=== PATIENT | female | born 1945 | race Caucasian/White ===

== ENCOUNTER → 2017-06-03 | Outpatient (CLI) | payer MEDICARE ==
[~2017-06-03] VITALS: Ht 162.6 cm; Wt 67.1 kg
[2017-06-03 12:15] LABS: Basophils # (auto) 0.1 uL; Eosinophils # (auto) 0.5 uL; Eosinophils % (auto) 8.1 % (0.0-7.0); Hematocrit 46.4 % (36.0-46.0); Hemoglobin 15.6 g/dL (12.2-16.2); Lymphocytes # (auto) 1.8 uL; Lymphocytes % (auto) 30.2 % (10.0-50.0); Mean Corpuscular Hemoglobin 33.8 pg (28.0-32.0); Mean Corpuscular Hgb Conc. 33.7 g/dL (32.0-36.0); Mean Corpuscular Volume 100.2 fL (80.0-100.0); Monocytes # (auto) 0.6 uL; Monocytes % (auto) 10.2 % (0.0-12.0); Neutrophils # (auto) 2.9 uL; Neutrophils % (auto) 49.5 % (37.0-80.0); Nucleated Red Blood Cells % 0.1 %; Platelet Count (auto) 290 10^3/uL (140-450); Red Blood Cells 4.63 10^6/uL (4.0-5.20); Red Cell Distribution Width 13.7 % (11.8-14.3); White Blood Cell 5.8 10^3/uL (4.4-10.8)
[2017-06-03 12:16] LABS: Urine Blood TRACE /uL (Negative); Urine Specific Gravity 1.019 (1.001-1.035)
[2017-06-03 12:28] LABS: Free T4 (Free Thyroxine) 1.09 ng/dL (0.89-1.76)
[2017-06-03 12:44] LABS: Albumin 3.8 g/dL (3.4-5.0); Bilirubin, Total 0.5 mg/dL (0.2-1.0); Calcium 9.9 mg/dL (8.5-10.1); Potassium 4.7 mmol/L (3.5-5.1); Total Protein 7.2 g/dL (6.4-8.2)
== END | disposition home or self-care (01) ==
LOC: Rad HDHVI 08:04
PROVIDERS: ATTEND Internal Medicine Cardiovascular Disease
DX: I20.9 Angina pectoris, unspecified (principal); R91.8 Other nonspecific abnormal finding of lung field; J44.9 Chronic obstructive pulmonary disease, unspecified; E04.1 Nontoxic single thyroid nodule; I70.0 Atherosclerosis of aorta; E04.9 Nontoxic goiter, unspecified; E78.00 Pure hypercholesterolemia, unspecified; D64.9 Anemia, unspecified; I10 Essential (primary) hypertension; E11.9 Type 2 diabetes mellitus without complications; E03.9 Hypothyroidism, unspecified; E55.9 Vitamin D deficiency, unspecified; D51.9 Vitamin B12 deficiency anemia, unspecified; N39.0 Urinary tract infection, site not specified
CPT/HCPCS: 36415; 78452; 80053; 80061; 81003; 82306; 82607; 83036; 84439; 84443; 85025; 93017; 96374; A9500; 71046

== ENCOUNTER → 2018-04-25 | Outpatient (CLI) | payer MEDICARE ==
[~2018-04-25] MED LIST: IOHEXOL 350 MG/ML 100ML IJ ONE
[2018-04-25 12:05] VITALS: BP 130/50
[2018-04-25 12:30] VITALS: BP 119/52
== END | disposition home or self-care (01) ==
LOC: Rad HDHVI 11:59
PROVIDERS: ATTEND Internal Medicine Cardiovascular Disease
DX: T17.890A Other foreign object in other parts of respiratory tract causing asphyxiation, initial encounter (principal); R06.02 Shortness of breath; R05 Cough; I70.0 Atherosclerosis of aorta; X58.XXXA Exposure to other specified factors, initial encounter; Y93.89 Activity, other specified; Y92.89 Other specified places as the place of occurrence of the external cause; Y99.8 Other external cause status
CPT/HCPCS: 71275; 82565; G0463; Q9967

== ENCOUNTER → 2018-07-26 | Outpatient (CLI) | payer MEDICARE ==
[2018-07-26 12:15] LABS: Basophils # (auto) 0.1 uL; Basophils % (auto) 2.2 % (0.0-2.0); Eosinophils # (auto) 0.4 uL; Hematocrit 49.9 % (36.0-46.0); Hemoglobin 16.6 g/dL (12.2-16.2); Lymphocytes # (auto) 1.7 uL; Lymphocytes % (auto) 27.6 % (10.0-50.0); Mean Corpuscular Hemoglobin 33.3 pg (28.0-32.0); Mean Corpuscular Hgb Conc. 33.2 g/dL (32.0-36.0); Mean Corpuscular Volume 100.5 fL (80.0-100.0); Monocytes # (auto) 0.6 uL; Monocytes % (auto) 9.1 % (0.0-12.0); Neutrophils # (auto) 3.3 uL; Neutrophils % (auto) 54.1 % (37.0-80.0); Nucleated Red Blood Cells % 0.8 %; Platelet Count (auto) 301 10^3/uL (140-450); Red Blood Cells 4.97 10^6/uL (4.0-5.20); Red Cell Distribution Width 13.4 % (11.8-14.3)
[2018-07-26 12:23] LABS: Urine Blood Negative /uL (Negative); Urine Specific Gravity 1.014 (1.001-1.035)
[2018-07-26 12:30] LABS: Potassium 3.7 mmol/L (3.5-5.1)
[2018-07-26 12:55] LABS: Albumin 3.6 g/dL (3.4-5.0); Bilirubin, Total 0.4 mg/dL (0.2-1.0); Calcium 10.1 mg/dL (8.5-10.1); Total Protein 7.5 g/dL (6.4-8.2)
[2018-07-26 19:30] LABS: Free T4 (Free Thyroxine) 1.38 ng/dL (0.89-1.76)
== END | disposition home or self-care (01) ==
LOC: LAB 08:08
PROVIDERS: ATTEND Internal Medicine Cardiovascular Disease
DX: E55.9 Vitamin D deficiency, unspecified (principal); E03.9 Hypothyroidism, unspecified; E11.9 Type 2 diabetes mellitus without complications; D51.9 Vitamin B12 deficiency anemia, unspecified; N39.0 Urinary tract infection, site not specified
CPT/HCPCS: 36415; 80053; 80061; 81003; 82306; 82607; 83036; 84439; 84443; 85025; 87086

== ENCOUNTER → 2019-04-27 | Outpatient (CLI) | payer MEDICARE ==
[~2019-04-27] VITALS: Ht 162.6 cm; Wt 65.8 kg
[~2019-04-27] MED LIST changes: +ADENOSINE 55 MG in GIVE UN-DILUTED 0 ML IV ONE; +ADENOSINE 90 MG/30 ML INJ IV ONE; -IOHEXOL 350 MG/ML 100ML IJ ONE
== END | disposition home or self-care (01) ==
LOC: Rad HDHVI 13:33
PROVIDERS: ATTEND Internal Medicine Cardiovascular Disease
DX: R07.89 Other chest pain (principal); R00.2 Palpitations; R06.02 Shortness of breath; I25.2 Old myocardial infarction; I10 Essential (primary) hypertension; E78.00 Pure hypercholesterolemia, unspecified; R07.9 Chest pain, unspecified
CPT/HCPCS: 78452; 93005; 96374; 96375; A9500; J0153

== ENCOUNTER → 2020-04-01 | Outpatient (CLI) | payer MEDICARE | END | disposition home or self-care (01) | LOC: Rad HDHVI 11:43 | PROVIDERS: ATTEND Internal Medicine Cardiovascular Disease | DX: I70.90 Unspecified atherosclerosis (principal); R27.0 Ataxia, unspecified | CPT/HCPCS: 70450 ==

== ENCOUNTER → 2020-04-10 | Outpatient (CLI) | payer MEDICARE | END | disposition home or self-care (01) | LOC: Rad HDHVI 14:02 | PROVIDERS: ATTEND Internal Medicine Cardiovascular Disease | DX: J44.9 Chronic obstructive pulmonary disease, unspecified (principal); R06.02 Shortness of breath | CPT/HCPCS: 93306 ==

== ENCOUNTER → 2020-04-23 | Outpatient (CLI) | payer MEDICARE ==
[2020-04-23 12:17] LABS: Urine Blood Negative /uL (Negative); Urine Specific Gravity 1.008 (1.001-1.035)
[2020-04-23 12:30] LABS: Albumin 3.6 g/dL (3.4-5.0); Potassium 4.1 mmol/L (3.5-5.1)
[2020-04-23 12:36] LABS: Bilirubin, Total 0.4 mg/dL (0.2-1.0); Total Protein 7.3 g/dL (6.4-8.2)
[2020-04-23 12:45] LABS: Basophils # (auto) 0.1 10 ^3/uL (0-0.2); Basophils % (auto) 1.8 % (0.0-2.0); Eosinophils # (auto) 0.5 10 ^3/uL (0-0.8); Eosinophils % (auto) 7.6 % (0.0-7.0); Hematocrit 44.5 % (36.0-46.0); Hemoglobin 14.7 g/dL (12.2-16.2); Lymphocytes # (auto) 1.4 10 ^3/uL (0.4-5.4); Lymphocytes % (auto) 20.6 % (10.0-50.0); Mean Corpuscular Hemoglobin 32.8 pg (28.0-32.0); Mean Corpuscular Volume 99.2 fL (80.0-100.0); Monocytes # (auto) 0.6 10 ^3/uL (0-1.3); Monocytes % (auto) 8.4 % (0.0-12.0); Neutrophils # (auto) 4.1 10 ^3/uL (1.6-8.6); Neutrophils % (auto) 61.6 % (37.0-80.0); Platelet Count (auto) 352 10^3/uL (140-450); Red Blood Cells 4.48 10^6/uL (4.0-5.20); Red Cell Distribution Width 13.1 % (11.8-14.3); White Blood Cell 6.7 10^3/uL (4.4-10.8)
[2020-04-23 14:50] LABS: Free T4 (Free Thyroxine) 1.19 ng/dL (0.89-1.76)
== END | disposition home or self-care (01) ==
LOC: LAB 08:53
PROVIDERS: ATTEND Internal Medicine Cardiovascular Disease
DX: D51.3 Other dietary vitamin B12 deficiency anemia (principal); I10 Essential (primary) hypertension; E11.9 Type 2 diabetes mellitus without complications; E55.9 Vitamin D deficiency, unspecified; D64.9 Anemia, unspecified; R00.2 Palpitations; R53.1 Weakness; R30.0 Dysuria
CPT/HCPCS: 36415; 80053; 80061; 81003; 82306; 82607; 83036; 84403; 84439; 84443; 85025

== ENCOUNTER → 2021-04-29 | Outpatient (CLI) | payer MEDICARE | END | disposition home or self-care (01) | LOC: LAB 11:55 | PROVIDERS: ATTEND Internal Medicine Gastroenterology | DX: R19.7 Diarrhea, unspecified (principal) | CPT/HCPCS: 82784; 83516; 86255 ==

== ENCOUNTER → 2021-05-26 | Outpatient (CLI) | payer MEDICARE | END | disposition home or self-care (01) | LOC: LAB 14:06 | PROVIDERS: ATTEND Internal Medicine Gastroenterology | DX: R19.7 Diarrhea, unspecified (principal) | CPT/HCPCS: 87045; 87427; 87493 ==

== ENCOUNTER 2021-07-16 09:00 | Outpatient (CLI) | payer MEDICARE ==
[~2021-07-16] VITALS: Ht 162.6 cm; Wt 63.5 kg
[~2021-07-16 09:00] MED LIST changes: -ADENOSINE 55 MG in GIVE UN-DILUTED 0 ML IV ONE; -ADENOSINE 90 MG/30 ML INJ IV ONE; +CLOP75TA28 PO
[2021-07-16 09:46] LABS: INR 0.98 (0.9-1.15); Partial Thromboplastin Time 27.3 sec (23.6-33.0)
[2021-07-16 12:36] LABS: Basophils # (auto) 0.1 10 ^3/uL (0-0.2); Basophils % (auto) 1.2 % (0.0-2.0); Eosinophils # (auto) 0.2 10 ^3/uL (0-0.8); Eosinophils % (auto) 3.8 % (0.0-7.0); Hematocrit 46.3 % (36.0-46.0); Hemoglobin 15.6 g/dL (12.2-16.2); Lymphocytes # (auto) 1.5 10 ^3/uL (0.4-5.4); Lymphocytes % (auto) 24.7 % (10.0-50.0); Mean Corpuscular Hgb Conc. 33.6 g/dL (32.0-36.0); Mean Corpuscular Volume 98.1 fL (80.0-100.0); Monocytes # (auto) 0.6 10 ^3/uL (0-1.3); Monocytes % (auto) 9.4 % (0.0-12.0); Neutrophils # (auto) 3.6 10 ^3/uL (1.6-8.6); Neutrophils % (auto) 60.9 % (37.0-80.0); Nucleated Red Blood Cells % 0.1 %; Red Blood Cells 4.72 10^6/uL (4.0-5.20); Red Cell Distribution Width 13.1 % (11.8-14.3); White Blood Cell 5.9 10^3/uL (4.4-10.8)
[2021-07-16 12:50] LABS: Potassium 4.1 mmol/L (3.5-5.1)
[2021-07-16 13:02] LABS: Albumin 3.8 g/dL (3.4-5.0); BUN/Creatinine Ratio 24.3; Bilirubin, Total 0.5 mg/dL (0.2-1.0); Calcium 10.3 mg/dL (8.5-10.1); Total Protein 7.4 g/dL (6.4-8.2)
== END 2021-07-16 09:14 | disposition home or self-care (01) ==
LOC: LAB 09:00 → EDSTATUS 07-17 09:15
PROVIDERS: ATTEND Internal Medicine Gastroenterology
DX: Z01.812 Encounter for preprocedural laboratory examination (principal); I21.9 Acute myocardial infarction, unspecified; J44.9 Chronic obstructive pulmonary disease, unspecified; K63.5 Polyp of colon; Z20.822 Contact with and (suspected) exposure to COVID-19; I10 Essential (primary) hypertension; I71.4 Abdominal aortic aneurysm, without rupture; R19.7 Diarrhea, unspecified; F17.200 Nicotine dependence, unspecified, uncomplicated
CPT/HCPCS: 36415; 80053; 85025; 85610; 85730; U0003

== ENCOUNTER → 2021-08-08 | Outpatient (CLI) | payer MEDICARE ==
[2021-08-08 11:52] LABS: Urine Blood Negative /uL (Negative); Urine Specific Gravity 1.021 (1.001-1.035)
[2021-08-08 12:03] LABS: Potassium 3.8 mmol/L (3.5-5.1)
[2021-08-08 12:07] LABS: Basophils # (auto) 0.1 10 ^3/uL (0-0.2); Basophils % (auto) 1.3 % (0.0-2.0); Eosinophils # (auto) 0.4 10 ^3/uL (0-0.8); Eosinophils % (auto) 6.4 % (0.0-7.0); Hematocrit 46.4 % (36.0-46.0); Hemoglobin 15.8 g/dL (12.2-16.2); Lymphocytes # (auto) 1.5 10 ^3/uL (0.4-5.4); Lymphocytes % (auto) 23.7 % (10.0-50.0); Mean Corpuscular Hemoglobin 33.2 pg (28.0-32.0); Mean Corpuscular Hgb Conc. 34.1 g/dL (32.0-36.0); Mean Corpuscular Volume 97.4 fL (80.0-100.0); Monocytes # (auto) 0.5 10 ^3/uL (0-1.3); Monocytes % (auto) 8.1 % (0.0-12.0); Neutrophils % (auto) 60.5 % (37.0-80.0); Red Blood Cells 4.76 10^6/uL (4.0-5.20); Red Cell Distribution Width 13.4 % (11.8-14.3); White Blood Cell 6.5 10^3/uL (4.4-10.8)
[2021-08-08 12:12] LABS: Albumin 3.7 g/dL (3.4-5.0); BUN/Creatinine Ratio 23.5; Bilirubin, Total 0.5 mg/dL (0.2-1.0); Calcium 10.8 mg/dL (8.5-10.1); Total Protein 7.6 g/dL (6.4-8.2)
[2021-08-08 12:14] LABS: Free T4 (Free Thyroxine) 1.23 ng/dL (0.89-1.76)
== END | disposition home or self-care (01) ==
LOC: LAB 08:24
PROVIDERS: ATTEND Internal Medicine Cardiovascular Disease
DX: E11.9 Type 2 diabetes mellitus without complications (principal); D51.3 Other dietary vitamin B12 deficiency anemia; D64.9 Anemia, unspecified; E55.9 Vitamin D deficiency, unspecified; I10 Essential (primary) hypertension; R00.2 Palpitations; R53.1 Weakness; R30.0 Dysuria
CPT/HCPCS: 36415; 80053; 80061; 81003; 82306; 82607; 83036; 84439; 84443; 85025

== ENCOUNTER → 2021-08-21 | Day surgery (SDC) | payer MEDICARE ==
[2021-08-19 10:35] LABS: Urine Bacteria FEW /hpf (None Seen); Urine Blood Negative /uL (Negative); Urine Specific Gravity 1.021 (1.001-1.035); Urine WBC 2 /hpf (0 - 5)
[2021-08-19 10:36] LABS: Basophils # (auto) 0.1 10 ^3/uL (0-0.2); Basophils % (auto) 1.4 % (0.0-2.0); Eosinophils # (auto) 0.2 10 ^3/uL (0-0.8); Eosinophils % (auto) 2.9 % (0.0-7.0); Hematocrit 44.2 % (36.0-46.0); Hemoglobin 15.1 g/dL (12.2-16.2); Lymphocytes # (auto) 1.5 10 ^3/uL (0.4-5.4); Lymphocytes % (auto) 20.3 % (10.0-50.0); Mean Corpuscular Hemoglobin 33.1 pg (28.0-32.0); Mean Corpuscular Hgb Conc. 34.1 g/dL (32.0-36.0); Mean Corpuscular Volume 97.2 fL (80.0-100.0); Monocytes # (auto) 0.6 10 ^3/uL (0-1.3); Monocytes % (auto) 7.7 % (0.0-12.0); Neutrophils # (auto) 5.1 10 ^3/uL (1.6-8.6); Neutrophils % (auto) 67.7 % (37.0-80.0); Nucleated Red Blood Cells % 0.1 %; Red Blood Cells 4.55 10^6/uL (4.0-5.20); Red Cell Distribution Width 13.2 % (11.8-14.3); White Blood Cell 7.5 10^3/uL (4.4-10.8)
[2021-08-19 10:37] LABS: Potassium 4.8 mmol/L (3.5-5.1)
[2021-08-19 10:47] LABS: Albumin 3.5 g/dL (3.4-5.0); BUN/Creatinine Ratio 16.5; Bilirubin, Total 0.4 mg/dL (0.2-1.0); Calcium 9.5 mg/dL (8.5-10.1); Total Protein 7.1 g/dL (6.4-8.2)
[2021-08-19 11:11] LABS: INR 0.98 (0.9-1.15)
[2021-08-19 11:12] LABS: Partial Thromboplastin Time 27.2 sec (23.6-33.0)
[~2021-08-21] VITALS: Ht 162.6 cm; Wt 59.4 kg
[~2021-08-21] MED LIST changes: +ACET-6 PO; +ALBUAER3 IN; +ASPITAB37 PO; +BUDE1AER4 IN; +CALC-332 OR; +CALC150C PO; +CHOL20004 PO; +LISI2.5T47 PO; +METO25TA36 PO; +POLYSOL2 OP; +SIMV-13 PO; +SODIUM CHLORIDE LOCK 10 ML ONE; +diphenhdrAMINE HCL 50 MG/1 ML VL ONE
[2021-08-21] MEDS: fentaNYL CITRATE 100 MCG/2 ML VL ONE ×3 (11:02→11:12)
[2021-08-21] MEDS: MIDAZOLAM HCL 5 MG/ML-1ML VIAL ONE ×4 (11:02→11:39)
[2021-08-21 12:30] VITALS: BP 145/58
== END | disposition home or self-care (01) ==
LOC: GI 10:43
PROVIDERS: ATTEND Internal Medicine Gastroenterology
DX: K52.9 Noninfective gastroenteritis and colitis, unspecified (principal); D12.2 Benign neoplasm of ascending colon; D12.3 Benign neoplasm of transverse colon; D12.8 Benign neoplasm of rectum; K63.89 Other specified diseases of intestine; K64.8 Other hemorrhoids; F17.200 Nicotine dependence, unspecified, uncomplicated; I10 Essential (primary) hypertension; E78.5 Hyperlipidemia, unspecified; E03.9 Hypothyroidism, unspecified; J44.9 Chronic obstructive pulmonary disease, unspecified; Z98.890 Other specified postprocedural states; Z79.899 Other long term (current) drug therapy; Z95.5 Presence of coronary angioplasty implant and graft; Z20.822 Contact with and (suspected) exposure to COVID-19
CPT/HCPCS: 36415; 45380; 45381; 45385; 80053; 81001; 85025; 85610; 85730; 88305; J1200; J2250; J3010; J7030; U0003; 99153; G0500

== ENCOUNTER → 2022-03-30 | Outpatient (CLI) | payer MEDICARE ==
[~2022-03-30] MED LIST changes: -SODIUM CHLORIDE LOCK 10 ML ONE; -diphenhdrAMINE HCL 50 MG/1 ML VL ONE
== END | disposition home or self-care (01) ==
LOC: Rad HDHVI 11:11
PROVIDERS: ATTEND Internal Medicine Cardiovascular Disease
DX: I08.0 Rheumatic disorders of both mitral and aortic valves (principal); I10 Essential (primary) hypertension; R42 Dizziness and giddiness
CPT/HCPCS: 93306

== ENCOUNTER → 2022-05-13 | Outpatient (CLI) | payer MEDICARE | END | disposition home or self-care (01) | LOC: Rad HDHVI 09:57 | PROVIDERS: ATTEND Internal Medicine Cardiovascular Disease | DX: I65.23 Occlusion and stenosis of bilateral carotid arteries (principal); I10 Essential (primary) hypertension; I70.203 Unspecified atherosclerosis of native arteries of extremities, bilateral legs; I70.291 Other atherosclerosis of native arteries of extremities, right leg | CPT/HCPCS: 93880; 93925 ==

== ENCOUNTER → 2022-05-27 | Outpatient (CLI) | payer MEDICARE ==
[~2022-05-27] MED LIST changes: +IOHEXOL 350 MG/ML 100ML IJ ONE; +cloNIDine HCL 0.1 MG TAB ONE; +cloNIDine HCL 0.1 MG TAB PO ONE
[2022-05-27 10:03] VITALS: BP 199/83
[2022-05-27 11:05] VITALS: BP 159/74
== END | disposition home or self-care (01) ==
LOC: Rad HDHVI 09:53
PROVIDERS: ATTEND Internal Medicine Cardiovascular Disease
DX: K42.9 Umbilical hernia without obstruction or gangrene (principal); I71.40 Abdominal aortic aneurysm, without rupture, unspecified; N28.1 Cyst of kidney, acquired; I72.3 Aneurysm of iliac artery; M47.814 Spondylosis without myelopathy or radiculopathy, thoracic region
CPT/HCPCS: 74175; G0463; Q9967

== ENCOUNTER → 2022-07-13 | Outpatient (CLI) | payer MEDICARE ==
[~2022-07-13] MED LIST changes: +CHL4PW GT; -IOHEXOL 350 MG/ML 100ML IJ ONE; +IPRIH INH; -cloNIDine HCL 0.1 MG TAB ONE; -cloNIDine HCL 0.1 MG TAB PO ONE
[2022-07-13 09:28] VITALS: BP 178/81
[2022-07-13 09:57] VITALS: BP 178/79
== END | disposition home or self-care (01) ==
LOC: Rad HDHVI 09:14
PROVIDERS: ATTEND Internal Medicine Cardiovascular Disease
DX: Z01.818 Encounter for other preprocedural examination (principal); R94.31 Abnormal electrocardiogram [ECG] [EKG]; I65.22 Occlusion and stenosis of left carotid artery; I25.10 Atherosclerotic heart disease of native coronary artery without angina pectoris
CPT/HCPCS: 71046; 93005; G0463

== ENCOUNTER 2022-07-16 06:57 | Day surgery (SDC) | payer MEDICARE ==
[2022-07-13 12:19] LABS: Basophils # (auto) 0.2 10 ^3/uL (0-0.2); Basophils % (auto) 2.6 % (0.0-2.0); Eosinophils # (auto) 0.2 10 ^3/uL (0-0.8); Eosinophils % (auto) 2.6 % (0.0-7.0); Hematocrit 47.4 % (36.0-46.0); Hemoglobin 15.8 g/dL (12.2-16.2); Lymphocytes # (auto) 1.6 10 ^3/uL (0.4-5.4); Lymphocytes % (auto) 19.9 % (10.0-50.0); Mean Corpuscular Hemoglobin 32.9 pg (28.0-32.0); Mean Corpuscular Hgb Conc. 33.4 g/dL (32.0-36.0); Mean Corpuscular Volume 98.5 fL (80.0-100.0); Monocytes # (auto) 0.6 10 ^3/uL (0-1.3); Monocytes % (auto) 8.2 % (0.0-12.0); Neutrophils # (auto) 5.3 10 ^3/uL (1.6-8.6); Neutrophils % (auto) 66.7 % (37.0-80.0); Nucleated Red Blood Cells % 0.1 %; Red Blood Cells 4.81 10^6/uL (4.0-5.20); Red Cell Distribution Width 13.4 % (11.8-14.3); White Blood Cell 7.9 10^3/uL (4.4-10.8)
[2022-07-13 12:45] LABS: INR 0.97 (0.9-1.15); Partial Thromboplastin Time 28.3 sec (24.6-33.4)
[2022-07-13 12:55] LABS: Calcium 10.6 mg/dL (8.5-10.1); Potassium 4.3 mmol/L (3.5-5.1)
[2022-07-13 12:58] LABS: BUN/Creatinine Ratio 26.5
[2022-07-16] VITALS (8 sets, daily range): BP systolic 111–131; BP diastolic 43–50
[~2022-07-16] VITALS: Ht 162.6 cm; Wt 58.1 kg
[~2022-07-16 06:57] MED LIST changes: -CALC-332 OR; -CALC150C PO
[2022-07-16] MEDS ORDERED: LIDOCAINE 2%HCL (LOCAL ANESTH.) INJ 20ML MDV ONE (09:01)
[2022-07-16] MEDS ORDERED: HEPARIN IN NS 1000Units/500mL 1,500 ML ONE (09:01)
[2022-07-16] MEDS ORDERED: fentaNYL CITRATE 100 MCG/2 ML VL ONE (09:03)
[2022-07-16] MEDS ORDERED: ANGIOMAX 250 MG VIAL IV ONE (09:03)
[2022-07-16] MEDS ORDERED: IOHEXOL 350 MG/ML 100ML IJ ONE (09:03)
[2022-07-16] MEDS ORDERED: MIDAZOLAM HCL 2MG/2ML 2ml VIAL (1mg/ml) ONE (09:04)
[2022-07-16] MEDS ORDERED: SODIUM CHL 0.9% 0 ML ONE (09:04)
== END 2022-07-16 12:40 | disposition home or self-care (01) ==
LOC: CATH 06:57
PROVIDERS: ATTEND Internal Medicine Cardiovascular Disease
DX: I70.202 Unspecified atherosclerosis of native arteries of extremities, left leg (principal); I10 Essential (primary) hypertension; Z20.822 Contact with and (suspected) exposure to COVID-19; Z79.899 Other long term (current) drug therapy; Z98.890 Other specified postprocedural states
CPT/HCPCS: 36247; 36415; 75716; 80048; 85025; 85610; 85730; C1760; C1769; C1894; J1644; J2250; J3010; Q9967; U0003; 99152

== ENCOUNTER → 2023-04-12 | Outpatient (CLI) | payer MEDICARE ==
[~2023-04-12] MED LIST changes: -SIMV-13 PO; +SIMV40TA18 PO
== END | disposition home or self-care (01) ==
LOC: Rad HDHVI 13:02
PROVIDERS: ATTEND Internal Medicine Cardiovascular Disease
DX: I70.203 Unspecified atherosclerosis of native arteries of extremities, bilateral legs (principal)
CPT/HCPCS: 93925

== ENCOUNTER → 2023-04-20 | Outpatient (CLI) | payer MEDICARE ==
[~2023-04-20] VITALS: Ht 162.6 cm; Wt 53.5 kg
[~2023-04-20] MED LIST changes: +ADENOSINE 45 MG in GIVE UN-DILUTED 0 ML IV ONE; +ADENOSINE 90 MG/30 ML INJ IV ONE
== END | disposition home or self-care (01) ==
LOC: Rad HDHVI 12:47
PROVIDERS: ATTEND Internal Medicine Cardiovascular Disease
DX: I08.3 Combined rheumatic disorders of mitral, aortic and tricuspid valves (principal); I11.9 Hypertensive heart disease without heart failure; R06.02 Shortness of breath; J44.9 Chronic obstructive pulmonary disease, unspecified; I25.2 Old myocardial infarction; I25.10 Atherosclerotic heart disease of native coronary artery without angina pectoris; I73.9 Peripheral vascular disease, unspecified; E78.00 Pure hypercholesterolemia, unspecified; F17.210 Nicotine dependence, cigarettes, uncomplicated; Z82.49 Family history of ischemic heart disease and other diseases of the circulatory system
CPT/HCPCS: 78452; 93005; 93306; 96374; 96375; A9500; J0153

== ENCOUNTER 2024-04-02 11:50 | Inpatient (IN) | payer MEDICARE ==
[~2024-04-02] VITALS: Ht 162.6 cm; Wt 49.6 kg
[2024-04-02] VITALS (7 sets, daily range): BP systolic 131–135; BP diastolic 75–81; PULSE 55–92; RESP 16–22; TEMP 97.7; O2SAT 94–99
[~2024-04-02 11:50] MED LIST changes: -ADENOSINE 45 MG in GIVE UN-DILUTED 0 ML IV ONE; -ADENOSINE 90 MG/30 ML INJ IV ONE; +BUDE3CAP18 PO; +MET25T PO; +TADA20TA52 PO
--- NOTE | 2024-04-02 12:28 | ED.PDOC ---
History of Present Illness HPI Comments 78-year-old came to the ER stating that she has been having cough shortness a breath for about five days. Shortness a breath has been increasing. She did go to urgent care this morning for which she was given a steroid and Rocephin injection. Patient came to the ER because she was having worsening of shortness a breath not helping with oxygen. Along with shortness a breath she has been having increasing cough which started last night. She is on home oxygen. History of hypertension COPD. Denies chest pain. Denies abdominal pain. Denies nausea vomiting. Denies any other symptoms. Time Seen by MD: 11:54 Reviewed Notes: Nurses Notes, Medications, Allergies Allergies: Coded Allergies: NO KNOWN ALLERGIES (Unverified , 05/07/16) Home Meds Reported Medications Cholestyramine (QUESTRAN POWDER) 4 Gm Pw, 2 GM GT DAILY 07/13/22 Ipratropium [place] Hfa (Atrovent Hfa) 17 Mcg Aer, 2 PUFF INH QID, #12.9 GRAMS 5 Refills 07/13/22 Ghwnfik-Ehftqrzzudjbc-Ewssiirg (Excedrin Extra Strength) Expr Gel Tab, 1 GEL PO PRN PRN for FOR HEADACHE, TAB 08/19/21 Polyethylene Glycol-Propylene (Systane) [place], 1 OP, ML 08/19/21 Acetaminophen (Acetaminophen Extra Stren) 500 Mg Tab, 1000 MG PO TID 08/19/21 Cholecalciferol (D3) 50 Mcg Cap, 100 MCG PO DAILY, CAP 08/19/21 Simvastatin (Simvastatin) 40 Mg Tab, 40 MG PO DAILY, TAB 08/19/21 Metoprolol Succinate (Toprol Xl) 25 Mg Tab, 50 MG PO DAILY, TAB 08/19/21 Lisinopril (Lisinopril) 2.5 Mg Tab, 2.5 MG PO DAILY, TAB 08/19/21 Albuterol Sulfate (VENTOLIN MDI) 90 Mcg Ih, 90 MCG IN Q6HPRN PRN for SHORTNESS OF BREATH, INH 08/19/21 Budesonide-Formoterol Fumarate (Budesonide/Formoterol Fum 160-4.5 Mcg/Act) 1 Aer Aer, 2 PUFF IN BID, AER 08/19/21 Clopidogrel Bisulfate (Plavix) 75 Mg Tab, 75 MG PO DAILY, TAB 07/14/21 Information Source: Patient Mode of Arrival: Ambulatory Severity: Moderate Timing: Days Duration: Since onset Past Medical History PAST MEDICAL HISTORY: COPD, HTN Surgical History: Denies all surgeries REHAB SPEC History: No Pertinent REHAB SPEC History Social History Smoker: Non-Smoker Alcohol: Denies ETOH Use Drugs: Denies Drug Use Constitutional: denies: chills, diaphoresis, fatigue, fever, malaise, sweats, weakness, others EENTM: denies: blurred vision, double vision, ear bleeding, ear discharge, ear drainage, ear pain, ear ringing, eye pain, eye redness, hearing loss, mouth pain, mouth swelling, nasal discharge, nose bleeding, nose congestion, nose pain, photophobia, tearing, throat pain, throat swelling, voice changes, others Respiratory: reports: cough, shortness of breath; denies: hemoptysis, orthopnea, SOB at rest, SOB with excertion, stridor, wheezing, others Cardiovascular: denies: chest pain, dizzy spells, diaphoresis, Dyspnea on exertion, edema, irregular heart beat, left arm pain, lightheadedness, palpitati ons, PND, syncope, others Gastrointestinal: denies: abdomen distended, abdominal pain, blood streaked bowels, constipated, diarrhea, dysphagia, difficulty swallowing, hematemesis, melena, nausea, poor appetite, poor fluid intake, rectal bleeding, rectal pain, vomiting, others Genitourinary: denies: abnormal vagina bleeding, burning, dyspareunia, dysuria, flank pain, frequency, hematuria, incontinence, pain, , vagina discharge, urgency, others Neurological: denies: dizziness, fainting, headache, left sided numbness, left sided weakness, numbness, paresthesia, pre-existing deficit, right sided numbness, right sided weakness, seizure, speech problems, tingling, tremors, weakness, others Musculoskeletal: denies: back pain, gout, joint pain, joint swelling, muscle pain, muscle stiffness, neck pain, others Integumetry: denies: bruises, change in color, change in hair/nails, dryness, laceration, lesions, lumps, rash, wounds, others Allergic/Immunocompromised: denies: Difficulty Healing, Frequent Infections, Hives, Itching, others Hematologic/Lymphatic: denies: anemia, blood clots, easy bleeding, easy bruisin g, swollen glands, others Endocrine: denies: excessive hunger, excessive sweating, excessive thirst, excessive urination, flushing, intolerance to cold, intolerance to heat, unexplained weight gain, unexplained weight loss, others Psychiatric: denies: anxiety, bipolar disorder, depression, hopeless, panic disorder, schizophrenia, sleepless, suicidal, others Physical Exam General Appearance: Moderate Distress, Thin HEENT: Normal ENT Inspection, Pharynx Normal Neck: Full Range of Motion, Non-Tender, Normal, Normal Inspection Respiratory: Respiratory Distress, Other (Coarse breath sounds) Cardiovascular: Tachycardia Breast Exam: Deferred Gastrointestinal: No Organomegaly, Non Tender, No Pulsatile Mass, Normal Bowel Sounds, Soft Genitalia: Deferred Pelvic: Deferred Rectal: Deferred Extremities: Normal range of motion, No pedal edema Musculoskeletal : Apperance: Normal Neurologic: Alert Cerebellar Function: NOT DONE Reflexes: NOT DONE Skin: Pallor Peripheral Pulses: 3+ Radial (R), 3+ Radial (L) Lymphatic: No Adenopathy Was a procedure done? Was a procedure done?: No Differential Dx Considerations may include: COPD exacerbation Pneumonia X-Ray, Labs, Meds, VS Vital Signs Date Time Temp Pulse Resp B/P (MAP) Pulse Ox O2 Delivery O2 Flow Rate FiO2 04/02/24 13:02 90 Nasal Cannula* 2 28 04/02/24 13:02 14 90 Nasal Cannula* 2 28 04/02/24 12:19 124 04/02/24 11:55 97.8 134 24 158/76 (103) 85 Lab Test 04/02/24 12:14 Range/Units White Blood Count 9.5 4.4-10.8 10^3/uL Red Blood Count 4.87 4.0-5.20 10^6/uL Hemoglobin 14.7 12.2-16.2 g/dL Hematocrit 44.1 36.0-46.0 % Mean Corpuscular Volume 90.5 80.0-100.0 fL Mean Corpuscular Hemoglobin 30.2 28.0-32.0 pg Mean Corpuscular Hemoglobin Concent 33.4 32.0-36.0 g/dL Red Cell Distribution Width 14.9 H 11.8-14.3 % Platelet Count 346 140-450 10^3/uL Mean Platelet Volume 7.0 6.9-10.8 fL Neutrophils (%) (Auto) 85.6 H 37.0-80.0 % Lymphocytes (%) (Auto) 9.2 L 10.0-50.0 % Monocytes (%) (Auto) 3.9 0.0-12.0 % Eosinophils (%) (Auto) 0.6 0.0-7.0 % Basophils (%) (Auto) 0.7 0.0-2.0 % Neutrophils # (Auto) 8.1 1.6-8.6 10 ^3/uL Lymphocytes # (Auto) 0.9 0.4-5.4 10 ^3/uL Monocytes # (Auto) 0.4 0-1.3 10 ^3/uL Eosinophils # (Auto) 0.1 0-0.8 10 ^3/uL Basophils # (Auto) 0.1 0-0.2 10 ^3/uL Nucleated Red Blood Cells 0.0 % Sodium Level 137 136-145 mmol/L Potassium Level 4.0 3.5-5.1 mmol/L Chloride Level 105 98-107 mmol/L Carbon Dioxide Level 27 20-31 mmol/L Anion Gap 5 5-15 Blood Urea Nitrogen 15 9-23 mg/dL Creatinine 0.82 0.550-1.02 mg/dL Glomerular Filtration Rate Calc 74 >90 mL/min BUN/Creatinine Ratio 18.3 10.0-20.0 Serum Glucose 163 H 74-106 mg/dL Calcium Level 10.7 H 8.7-10.4 mg/dL Current Medications Medications (Trade) Dose Ordered Sig/Denzel Route Start Time Stop Time Status Last Admin Albuterol (Ventolin Medneb) 5 mg ONCE ONCE NEB 04/02/24 12:30 04/02/24 12:32 DC 04/02/24 13:02 Ipratropium [place] (Atrovent Medneb) 0.5 mg ONCE ONCE NEB 04/02/24 12:30 04/02/24 12:32 DC 04/02/24 13:07 Patient alert. Complaining of shortness a breath. Placed on oxygen. History of COPD. Was given steroid prior to coming to the ER at urgent care. Possible pneumonia. COPD exacerbation. Reviewed her previous visit. Explained to the patient. Continue cardiac monitoring. EKG reviewed does not show any acute changes. Chest x-ray reviewed does show pneumonitis. Time of 1ST Reevaluation: 12:26 Reevaluation 1ST: Unchanged Patient Education/Counseling: Diagnosis, Treatment, Prognosis Family Education/Counseling: No Family Present Departure 1 Departure Time of Disposition: 12:27 Impression: Primary Impression: Acute respiratory failure Qualified Codes: J96.01 - Acute respiratory failure with hypoxia Additional Impressions: Pneumonitis COPD exacerbation Disposition: ADMITTED INPATIENT Admit to: Med Surg Condition: Guarded Critical Care Note Critical Care Time?: Yes (45 min-critical care time only) Stability Stability form required: No Heart Score Heart Score: Heart Score Response (Comments) Value History Slightly Suspicious 0 EKG Normal 0 Age >65 2 Risk Factors >3 or Hx ASHD 2 Troponin Normal limit 0 Total 4 WESLEY CLIFTON MD Apr 02, 2024 12:27
[2024-04-02 12:29] LABS: Basophils # (auto) 0.1 10 ^3/uL (0-0.2); Basophils % (auto) 0.7 % (0.0-2.0); Eosinophils # (auto) 0.1 10 ^3/uL (0-0.8); Eosinophils % (auto) 0.6 % (0.0-7.0); Hematocrit 44.1 % (36.0-46.0); Hemoglobin 14.7 g/dL (12.2-16.2); Lymphocytes # (auto) 0.9 10 ^3/uL (0.4-5.4); Lymphocytes % (auto) 9.2 % (10.0-50.0); Mean Corpuscular Hemoglobin 30.2 pg (28.0-32.0); Mean Corpuscular Hgb Conc. 33.4 g/dL (32.0-36.0); Mean Corpuscular Volume 90.5 fL (80.0-100.0); Monocytes # (auto) 0.4 10 ^3/uL (0-1.3); Monocytes % (auto) 3.9 % (0.0-12.0); Neutrophils # (auto) 8.1 10 ^3/uL (1.6-8.6); Neutrophils % (auto) 85.6 % (37.0-80.0); Platelet Count (auto) 346 10^3/uL (140-450); Red Blood Cells 4.87 10^6/uL (4.0-5.20); Red Cell Distribution Width 14.9 % (11.8-14.3); White Blood Cell 9.5 10^3/uL (4.4-10.8)
[2024-04-02 12:40] LABS: Chloride 105 mmol/L (98-107); Sodium 137 mmol/L (136-145)
[2024-04-02 12:41] LABS: Anion Gap 5 (5-15); Calcium 10.7 mg/dL (8.7-10.4); Carbon Dioxide 27 mmol/L (20-31)
[2024-04-02 12:46] LABS: BUN/Creatinine Ratio 18.3 (10.0-20.0); Blood Urea Nitrogen 15 mg/dL (9-23); Glucose 163 mg/dL (74-106)
--- NOTE | 2024-04-02 12:49 | DVH ---
CHEST RADIOGRAPH Indication:sob Technique: Single frontal view of the chest was obtained COMPARISON: None FINDINGS: Lines and Tubes: None Lungs: Lungs are hyperinflated suggestive of COPD. Diffuse increased interstitial prominence. Pleura: No effusion. No pneumothorax. Cardiomediastinal contours: Unremarkable Bones: Unremarkable IMPRESSION: Pulmonary vascular congestion versus viral pneumonitis.
[2024-04-02] MEDS: ALBUTEROL SULF 2.5 MG/0.5ML(0.5%) NEB SOLN NEB ONE (13:02)
[2024-04-02] MEDS: IPRATROPIUM BROM 0.5 MG/2.5ML INH SOL NEB ONE (13:07)
[2024-04-02] MEDS: MAGNESIUM SULFATE 1GM/100ML 100 ML IV ONE (15:00)
[2024-04-02] MEDS: methylPREDNISolone SOD SUCC 125 MG/2 ML VL IV ONE (17:12)
[2024-04-02] MEDS: AZITHROMYCIN 500MG/ 250ML 250 ML IV ONE (17:13)
[2024-04-02] MEDS: cefTRIAXone 1GM/50ML D5W 50 ML IV ONE (17:13)
[2024-04-02] MEDS ORDERED: MAALOX PLUS or MAALOX 30 ML PO PRN (19:45)
[2024-04-02] MEDS ORDERED: DOCUSATE SOD 100 MG CAP PO PRN (19:45)
[2024-04-02] MEDS ORDERED: HYDROcodone-ACET 5/325MG TAB PO PRN (19:45)
[2024-04-02] MEDS ORDERED: ONDANSETRON HCL 4 MG/2 ML VIAL IV PRN (19:45)
[2024-04-02] MEDS ORDERED: DEXTROSE (50%) 50ML SYRG IV PRN (19:45)
--- NOTE | 2024-04-02 20:12 | DVHHP2 ---
History of Present Illness Reason for Visit: Shortness of Breath History of Present Illness 78 yo female with copd, htn comes to the ed for the shortness of breath patient has been short of breath for 5 days and states that she was having shortness of breath patient is going to be admitted Cardiovascular: HTN Pulmonary: COPD Review of Systems Constitutional: No: Fever, Chills, Sweats, Weakness, Malaise, Other Eyes: No: Pain, Vision change, Conjunctivae inflammation, Eyelid inflammation, Other, Redness ENT: No: Ear pain, Ear discharge, Nose pain, Nose discharge, Nose congestion, Mouth pain, Mouth swelling, Throat pain, Throat swelling, Other Respiratory: Shortness of breath, SOB with excertion; No: Cough, Dry, Wheezing, Hemoptysis, Pleuritic Pain, Sputum, Wheezing, Other Cardiovascular: No: Chest Pain, Palpitations, Orthopnea, Paroxysmal Noc. Dyspnea, Edema, Lt Headedness, Other Gastrointestinal: No: Nausea, Vomiting, Abdominal Pain, Diarrhea, Constipation, Melena, Hematochezia, Other Genitourinary: No Dysuria, No Frequency, No Incontinence, No Hematuria, No Retention, No Other Musculoskeletal: No: other, neck pain, shoulder pain, arm pain, back pain, hand pain, leg pain, foot pain Skin: No: Rash, Lesions, Jaundice, Bruising, Other Neurological: No: Weakness, Numbness, Incoordination, Change in speech, Confusion, Seizures, Other Allergies: Coded Allergies: NO KNOWN ALLERGIES (Unverified , 05/07/16) Exam Vital Signs Vital Signs Date Time Temp Pulse Resp B/P (MAP) Pulse Ox O2 Delivery O2 Flow Rate FiO2 04/02/24 18:00 96 17 135/81 (99) 93 04/02/24 16:30 Nasal Cannula* 4 36 04/02/24 13:55 97.8 97.8 General Appearance: Alert, Oriented X3 HEENT: Atraumatic, PERRLA Respiratory: Clear to auscultation, Normal air movement Cardiovascular: Regular rate, Normal S1, Normal S2 Abdominal: Normal bowel sounds, Soft Extremities: No clubbing, No cyanosis Skin: No rashes, No breakdown Neuro: Normal gait, Normal speech Labs/Xrays Labs Test 04/02/24 12:14 Range/Units White Blood Count 9.5 4.4-10.8 10^3/uL Red Blood Count 4.87 4.0-5.20 10^6/uL Hemoglobin 14.7 12.2-16.2 g/dL Hematocrit 44.1 36.0-46.0 % Mean Corpuscular Volume 90.5 80.0-100.0 fL Mean Corpuscular Hemoglobin 30.2 28.0-32.0 pg Mean Corpuscular Hemoglobin Concent 33.4 32.0-36.0 g/dL Red Cell Distribution Width 14.9 H 11.8-14.3 % Platelet Count 346 140-450 10^3/uL Mean Platelet Volume 7.0 6.9-10.8 fL Neutrophils (%) (Auto) 85.6 H 37.0-80.0 % Lymphocytes (%) (Auto) 9.2 L 10.0-50.0 % Monocytes (%) (Auto) 3.9 0.0-12.0 % Eosinophils (%) (Auto) 0.6 0.0-7.0 % Basophils (%) (Auto) 0.7 0.0-2.0 % Neutrophils # (Auto) 8.1 1.6-8.6 10 ^3/uL Lymphocytes # (Auto) 0.9 0.4-5.4 10 ^3/uL Monocytes # (Auto) 0.4 0-1.3 10 ^3/uL Eosinophils # (Auto) 0.1 0-0.8 10 ^3/uL Basophils # (Auto) 0.1 0-0.2 10 ^3/uL Nucleated Red Blood Cells 0.0 % Sodium Level 137 136-145 mmol/L Potassium Level 4.0 3.5-5.1 mmol/L Chloride Level 105 98-107 mmol/L Carbon Dioxide Level 27 20-31 mmol/L Anion Gap 5 5-15 Blood Urea Nitrogen 15 9-23 mg/dL Creatinine 0.82 0.550-1.02 mg/dL Glomerular Filtration Rate Calc 74 >90 mL/min BUN/Creatinine Ratio 18.3 10.0-20.0 Serum Glucose 163 H 74-106 mg/dL Calcium Level 10.7 H 8.7-10.4 mg/dL Assessment/Plan Assessment/Plan Admit to Tele Acute COPD exacerbation Suspected super imposed PNA IV ABX IV Hydration Steroids q8h PRN prn breathing treatments History of HTN c/w home medications Plan discussed with: Patient My Orders Orders - LLUVIA DAS MD Procedure Category Date Status Time Azithromycin 500mg/ PHA 04/03/24 Verified 250ml (Zithromax 50 10:00 Ceftriaxone Ivpb PHA 04/03/24 Verified Rocephin 10:00 Albuterol Medneb PHA 04/02/24 Verified (Ventolin Medneb) 19:45 Ipratropium Medneb PHA 04/02/24 Verified (Atrovent Medneb) 19:45 Med Neb Initial RT 04/02/24 Verified Treatment 19:41 Methylprednisolone PHA 04/02/24 Verified Sod Succ (Solu Medrol 22:00 Glucose Blood PHA 04/02/24 Verified (Accu-Chek Comfort 22:00 Mild Sliding Scale PHA 04/02/24 Verified 22:00 Dextrose 50% Syringe PHA 04/02/24 Verified 19:45 Admit ADMIT 04/02/24 Verified 19:41 Code Status CODE 04/02/24 Verified 19:41 Vital Signs [facility] 04/02/24 Verified 19:41 Review Orders With [facility] 04/02/24 Verified Adm. 19:41 Consistent DIET 04/03/24 Verified Carb(Ccho)Diabetes Breakfast Alum & Mag PHA 04/02/24 Verified Hydrox-Simethicone 19:45 Docusate Sodium PHA 04/02/24 Verified Capsule (Colace 19:45 Acetaminophen Tablet [facility] 04/02/24 Verified (Tylenol Tablet) 19:45 Notify Of Changes [facility] 04/02/24 Verified From Base 19:41 Advance Directive [facility] 04/02/24 Verified 19:41 Basic Metabolic Panel LAB 04/03/24 Verified 04:00 Complete Blood Count LAB 04/03/24 Verified 04:00 Patient Condition ORDERS 04/02/24 Verified 19:41 Allergies [facility] 04/02/24 Verified 19:41 Hydrocodone-Acet PHA 04/02/24 Verified 5/325mg Tab ([place] 19:45 Ondansetron Hcl PHA 04/02/24 Verified (Zofran) 19:45 Mejia Méndez Of Changes [facility] 04/02/24 Verified From Base 19:41 Oxygen By Nasal RT 04/02/24 Verified Cannula 19:41 Cholestyramine Powder PHA 04/03/24 Verified (Questran Powder) 10:00 Clopidogrel Bisulfate PHA 04/03/24 Verified (Plavix) 10:00 (Nf) Cholecalciferol PHA 04/03/24 Verified (D3) 10:00 (Nf) Lisinopril PHA 04/03/24 Verified 10:00 (Nf) Metoprolol PHA 04/03/24 Verified Succinate (Toprol Xl) 10:00 (Nf) Simvastatin PHA 04/03/24 Verified 10:00 Problem List: (1) Pneumonitis (2) COPD exacerbation (3) Acute respiratory failure Date of Service: Apr 02, 2024 Billing Provider: LLUVIA DAS MD Common Visit Codes: [id number] INP/OBS CARE (HIGH) LLUVIA DAS MD Apr 02, 2024 20:12
[2024-04-02] MEDS ORDERED: CLOP75TA70 PO (21:47)
[2024-04-02] MEDS ORDERED: FLUT1INH6 INH (21:47)
[2024-04-02] MEDS ORDERED: MAGNTAB16 PO (21:47)
[2024-04-02] MEDS: IPRATROPIUM BROM 0.5 MG/2.5ML INH SOL NEB PRN (22:14)
[2024-04-02] MEDS: ALBUTEROL SULF 2.5 MG/0.5ML(0.5%) NEB SOLN NEB PRN (22:14)
[2024-04-02] MEDS ORDERED: GABA-1250 PO (22:21)
[2024-04-02] MEDS: ATORVASTATIN 20 MG TAB PO SCH (22:34)
[2024-04-02] MEDS: ACCU-CHEK COMFORT CURVE STRIP VI SCH (22:35)
[2024-04-02] MEDS: InsuLIN REG 1unit/0.01ml Soln (100units/ml) SC SCH (22:41)
[2024-04-03] VITALS (17 sets, daily range): BP systolic 120–177; BP diastolic 40–76; PULSE 72–110; RESP 15–24; TEMP 97–98.3; O2SAT 92–99
[2024-04-03] MEDS: methylPREDNISolone SOD SUCC 40 MG/ML VL IV SCH (00:17)
[2024-04-03] MEDS: ACETAMINOPHEN 325 MG TAB PO PRN (00:24)
[2024-04-03 05:48] LABS: Basophils # (auto) 0 10 ^3/uL (0-0.2); Eosinophils # (auto) 0 10 ^3/uL (0-0.8); Hematocrit 39.4 % (36.0-46.0); Hemoglobin 12.9 g/dL (12.2-16.2); Lymphocytes # (auto) 0.5 10 ^3/uL (0.4-5.4); Lymphocytes % (auto) 7.8 % (10.0-50.0); Mean Corpuscular Hemoglobin 29.9 pg (28.0-32.0); Mean Corpuscular Hgb Conc. 32.8 g/dL (32.0-36.0); Mean Corpuscular Volume 91.3 fL (80.0-100.0); Monocytes # (auto) 0.1 10 ^3/uL (0-1.3); Monocytes % (auto) 2.2 % (0.0-12.0); Neutrophils # (auto) 5.4 10 ^3/uL (1.6-8.6); Platelet Count (auto) 327 10^3/uL (140-450); Red Blood Cells 4.32 10^6/uL (4.0-5.20); Red Cell Distribution Width 14.9 % (11.8-14.3)
[2024-04-03 06:01] LABS: Calcium 10.1 mg/dL (8.7-10.4); Chloride 105 mmol/L (98-107); Sodium 136 mmol/L (136-145)
[2024-04-03 06:02] LABS: Anion Gap 6 (5-15); Carbon Dioxide 25 mmol/L (20-31)
[2024-04-03 06:08] LABS: BUN/Creatinine Ratio 23.8 (10.0-20.0); Blood Urea Nitrogen 19 mg/dL (9-23); Glucose 145 mg/dL (74-106)
[2024-04-03] MEDS: METOPROLOL SUCCINATE XL 50 MG TAB PO SCH (10:36)
[2024-04-03] MEDS: CLOPIDOGREL BISULFATE 75 MG TAB PO SCH (10:37)
[2024-04-03] MEDS: CHOLECALCIFEROL (VITD3) 1,000UNIT=25mCg TAB PO SCH (10:37)
[2024-04-03] MEDS: cefTRIAXone 1GM/50ML D5W 50 ML IV SCH (10:38)
[2024-04-03] MEDS: LISINOPRIL 5 MG TAB PO SCH (10:40)
[2024-04-03] MEDS: CHOLESTYRAMINE 4 GM POWDER GT SCH (10:40)
[2024-04-03] MEDS: AZITHROMYCIN 500MG/ 250ML 250 ML IV SCH (11:48)
--- NOTE | 2024-04-03 13:49 | DVHPN2 ---
Reviewed: Care Plan, H&P, Labs, Medications, Previous Orders, Radiology Changes from previous H/P or p: No Changes Eyes: No Pain, No Vision change, No Conjunctivae inflammation, No Eyelid inflammation, No Other, No Redness ENT: No Ear pain, No Ear discharge, No Nose pain, No Nose discharge, No Nose congestion, No Mouth pain, No Mouth swelling, No Throat pain, No Throat swelling, No Other Cardiovascular: No Chest Pain, No Palpitations, No Orthopnea, No Paroxysmal Noc. Dyspnea, No Edema, No Lt Headedness, No Other Respiratory: No Cough, No Dry; Shortness of breath, SOB with excertion; No Wheezing, No Hemoptysis, No Pleuritic Pain, No Sputum, No Other Gastrointestinal: No Nausea, No Vomiting, No Abdominal Pain, No Diarrhea, No Constipation, No Melena, No Hematochezia, No Other Genitourinary: No Dysuria, No Frequency, No Incontinence, No Hematuria, No Retention, No Other Musculoskeletal: No other, No neck pain, No shoulder pain, No arm pain, No back pain, No hand pain, No leg pain, No foot pain Skin: No Rash, No Lesions, No Jaundice, No Bruising, No Other Objective Vitals Vital Signs Date Time Temp Pulse Resp B/P (MAP) Pulse Ox O2 Delivery O2 Flow Rate FiO2 04/03/24 10:52 96 24 95 04/03/24 10:46 Nasal Cannula 3.0 04/03/24 10:46 32 04/03/24 10:40 147/58 04/03/24 08:29 97.9 97.9 Intake/Output Intake and Output 04/03/24 07:00 Intake Total 100 ml Balance 100 ml Intake Oral 100 ml Medications Current Medications Medications Dose Ordered Sig/Denzel Route Start Time Stop Time Status Last Admin Dose Admin Azithromycin 250 ml @ 125 mls/hr DAILY IV 04/03/24 10:00 04/03/24 11:48 125 MLS/HR Ceftriaxone Sodium 50 ml @ 100 mls/hr DAILY IV 04/03/24 10:00 04/03/24 10:38 100 MLS/HR Albuterol 2.5 mg Q4HWA PRN NEB 04/02/24 19:45 04/03/24 10:46 2.5 MG Ipratropium [place] 0.5 mg Q4HWA PRN NEB 04/02/24 19:45 04/03/24 10:46 0.5 MG Methylprednisolone Sodium Succinate 40 mg Q8HR IV 04/03/24 00:00 04/03/24 06:17 40 MG Diagnostic Test (Pha) 1 strip ACHS 04/02/24 22:00 04/03/24 11:04 1 STRIP Insulin Human Regular ACHS SC 04/02/24 22:00 04/03/24 11:46 3 UNITS Dextrose 50 ml UD PRN IV 04/02/24 19:45 Al Hydrox/Mg Hydrox/Simethicone 30 ml Q6HP PRN PO 04/02/24 19:45 Docusate Sodium 100 mg BIDPRN PRN PO 04/02/24 19:45 Acetaminophen 650 mg Q6HP PRN PO 04/02/24 19:45 04/03/24 11:04 650 MG Acetaminophen/ Hydrocodone Bitart 1 tab Q4HP PRN PO 04/02/24 19:45 Ondansetron HCl 4 mg Q4HP PRN IV 04/02/24 19:45 Cholestyramine Resin 2 gm DAILY GT 04/03/24 10:00 Clopidogrel Bisulfate 75 mg DAILY PO 04/03/24 10:00 04/03/24 10:37 75 MG Cholecalciferol 4,000 unit DAILY PO 04/03/24 10:00 04/03/24 10:37 4,000 UNIT Lisinopril 2.5 mg DAILY PO 04/03/24 10:00 04/03/24 10:40 2.5 MG Metoprolol Succinate 50 mg DAILY PO 04/03/24 10:00 04/03/24 10:36 50 MG Atorvastatin Calcium 20 mg HS PO 04/02/24 22:00 04/02/24 22:34 20 MG Laboratory Results Laboratory Tests 04/03/24 04:28 Chemistry Test 04/03/24 04:28 Calcium Level 10.1 mg/dL (8.7-10.4) Labs and/or images reviewed: Labs reviewed by me, Image(s) reviewed by me Assessment/Plan Assessment/Plan Respiratory failure: Oxygen by nasal cannula Acute COPD exacerbation: Albuterol Atrovent Solu-Medrol Hypertension peripheral neuropathy: Gabapentin Hypercholesterolemia: Lipitor Plan discussed with: Patient My Orders Orders - BELEN NICE MD Procedure Category Date Status Time D-Dimer LAB 04/03/24 Transmitted 13:43 Date of Service: Apr 03, 2024 Billing Provider: BELEN NICE MD Common Visit Codes: [id number] INP/OBS CARE(HIGH) BELEN NICE MD Apr 03, 2024 13:49
--- NOTE | 2024-04-03 13:52 | DVHPN2 ---
Progress Note - Dictate Date Seen: Apr 03, 2024 Medical Necessity Reason Pt with a Central, PICC or Fol: No Subjective PT WITH SOB CXR CONSISTENT WITH VIRAL PNEUMONITIS COPD WITH ACUTE EXACERBATION vital signs Vital Sign Date Time Temp Pulse Resp B/P (MAP) Pulse Ox O2 Delivery O2 Flow Rate FiO2 04/03/24 10:52 96 24 95 04/03/24 10:46 Nasal Cannula 3.0 04/03/24 10:46 32 04/03/24 10:40 147/58 04/03/24 08:29 97.9 97.9 Total Intake and Output 04/02/24 04/02/24 04/03/24 15:00 23:00 07:00 Intake Total 100 ml Balance 100 ml medications Current Medications Medications Dose Ordered Sig/Denzel Route Start Time Stop Time Status Last Admin Dose Admin Azithromycin 250 ml @ 125 mls/hr DAILY IV 04/03/24 10:00 04/03/24 11:48 125 MLS/HR Ceftriaxone Sodium 50 ml @ 100 mls/hr DAILY IV 04/03/24 10:00 04/03/24 10:38 100 MLS/HR Albuterol 2.5 mg Q4HWA PRN NEB 04/02/24 19:45 04/03/24 10:46 2.5 MG Ipratropium [place] 0.5 mg Q4HWA PRN NEB 04/02/24 19:45 04/03/24 10:46 0.5 MG Methylprednisolone Sodium Succinate 40 mg Q8HR IV 04/03/24 00:00 04/03/24 06:17 40 MG Diagnostic Test (Pha) 1 strip ACHS 04/02/24 22:00 04/03/24 11:04 1 STRIP Insulin Human Regular ACHS SC 04/02/24 22:00 04/03/24 11:46 3 UNITS Dextrose 50 ml UD PRN IV 04/02/24 19:45 Al Hydrox/Mg Hydrox/Simethicone 30 ml Q6HP PRN PO 04/02/24 19:45 Docusate Sodium 100 mg BIDPRN PRN PO 04/02/24 19:45 Acetaminophen 650 mg Q6HP PRN PO 04/02/24 19:45 04/03/24 11:04 650 MG Acetaminophen/ Hydrocodone Bitart 1 tab Q4HP PRN PO 04/02/24 19:45 Ondansetron HCl 4 mg Q4HP PRN IV 04/02/24 19:45 Cholestyramine Resin 2 gm DAILY GT 04/03/24 10:00 Clopidogrel Bisulfate 75 mg DAILY PO 04/03/24 10:00 04/03/24 10:37 75 MG Cholecalciferol 4,000 unit DAILY PO 04/03/24 10:00 04/03/24 10:37 4,000 UNIT Lisinopril 2.5 mg DAILY PO 04/03/24 10:00 04/03/24 10:40 2.5 MG Metoprolol Succinate 50 mg DAILY PO 04/03/24 10:00 04/03/24 10:36 50 MG Atorvastatin Calcium 20 mg HS PO 04/02/24 22:00 04/02/24 22:34 20 MG laboratory and microbiology Laboratory Tests 04/03/24 04:28 Test 04/03/24 04:28 Range/Units Serum Glucose 145 H 74-106 mg/dL Problem List SOB CXR CONSISTENT WITH VIRAL PNEUMONITIS COPD WITH ACUTE EXACERBATION Assessment/Plan INHALER STEROIDS ABX PT Plan discussed with: Patient NASIR AYALA MD Apr 03, 2024 13:52
--- NOTE | 2024-04-03 14:40 | ECG ---
[facility] Test Date: 2024-04-02 Test Time: 12:19:15 Pat Name: SHIVANI SCHAEFER Department: ER Room: 0284 A Gender: F Fashion Intern: JORJE : 1945 Requested By: EMERGENCY EMERGENCY Order Number: [id number] Reading MD: Ti Pickering Measurements Intervals [place] Rate: 124 P: 87 AK: 160 QRS: 88 QRSD: 90 T: 53 QT: 305 QTc: 438 Interpretive Statements Sinus tachycardia Consider right atrial enlargement Borderline right axis deviation Probable left ventricular hypertrophy Anterior Q waves, possibly due to LVH Electronically Signed On 04-13-2024 12:44:20 PST by Ti Pickering Please click the below link to view image of tracing.
[2024-04-03] MEDS ORDERED: BUDE3CAP18 PO (18:14)
[2024-04-03] MEDS ORDERED: TADA5TAB11 PO (18:16)
[2024-04-03] MEDS: ALBUTEROL SULF 2.5 MG/0.5ML(0.5%) NEB SOLN NEB SCH (18:31)
[2024-04-03] MEDS: IPRATROPIUM BROM 0.5 MG/2.5ML INH SOL NEB SCH (18:31)
[2024-04-03] MEDS: BUDESONIDE 3 MG PO SCH (22:00)
[2024-04-03] MEDS: TADALAFIL 20 MG PO SCH (22:28)
[2024-04-04] VITALS (16 sets, daily range): BP systolic 133–157; BP diastolic 38–64; PULSE 60–98; RESP 15–19; TEMP 97.5–98.2; O2SAT 67–100
--- NOTE | 2024-04-04 10:34 | DVHPN2 ---
Progress Note - Dictate Date Seen: Apr 04, 2024 Medical Necessity Reason Pt with a Central, PICC or Fol: No Subjective PT WITH SOB CXR CONSISTENT WITH VIRAL PNEUMONITIS COPD WITH ACUTE EXACERBATION vital signs Vital Sign Date Time Temp Pulse Resp B/P (MAP) Pulse Ox O2 Delivery O2 Flow Rate FiO2 04/04/24 10:14 135/49 04/04/24 10:13 70 04/04/24 08:30 98.2 18 97 98.2 04/04/24 06:47 Nasal Cannula 3.0 04/04/24 06:47 32 Total Intake and Output 04/03/24 04/03/24 04/04/24 14:59 22:59 06:59 Intake Total 300 ml 1150 ml 250 ml Balance 300 ml 1150 ml 250 ml medications Current Medications Medications Dose Ordered Sig/Denzel Route Start Time Stop Time Status Last Admin Dose Admin Azithromycin 250 ml @ 125 mls/hr DAILY IV 04/03/24 10:00 04/04/24 10:11 125 MLS/HR Ceftriaxone Sodium 50 ml @ 100 mls/hr DAILY IV 04/03/24 10:00 04/04/24 10:11 100 MLS/HR Methylprednisolone Sodium Succinate 40 mg Q8HR IV 04/03/24 00:00 04/04/24 06:16 40 MG Diagnostic Test (Pha) 1 strip ACHS 04/02/24 22:00 04/04/24 06:16 1 STRIP Insulin Human Regular ACHS SC 04/02/24 22:00 04/03/24 22:36 2 UNITS Dextrose 50 ml UD PRN IV 04/02/24 19:45 Al Hydrox/Mg Hydrox/Simethicone 30 ml Q6HP PRN PO 04/02/24 19:45 Docusate Sodium 100 mg BIDPRN PRN PO 04/02/24 19:45 Acetaminophen 650 mg Q6HP PRN PO 04/02/24 19:45 04/03/24 22:27 650 MG Acetaminophen/ Hydrocodone Bitart 1 tab Q4HP PRN PO 04/02/24 19:45 Ondansetron HCl 4 mg Q4HP PRN IV 04/02/24 19:45 Cholestyramine Resin 2 gm DAILY GT 04/03/24 10:00 Clopidogrel Bisulfate 75 mg DAILY PO 04/03/24 10:00 04/04/24 10:13 75 MG Cholecalciferol 4,000 unit DAILY PO 04/03/24 10:00 04/04/24 10:12 4,000 UNIT Lisinopril 2.5 mg DAILY PO 04/03/24 10:00 04/04/24 10:14 2.5 MG Metoprolol Succinate 50 mg DAILY PO 04/03/24 10:00 04/04/24 10:13 50 MG Atorvastatin Calcium 20 mg HS PO 04/02/24 22:00 04/03/24 22:27 20 MG Albuterol 2.5 mg Q4HWA [facility] 04/03/24 18:00 04/04/24 10:27 2.5 MG Ipratropium [place] 0.5 mg Q4HWA [facility] 04/03/24 18:00 04/04/24 10:27 0.5 MG Patient Own Medication 20 BID PO 04/03/24 22:00 04/04/24 10:15 20 Patient Own Medication 1 TID PO 04/03/24 22:00 laboratory and microbiology Laboratory Tests 04/03/24 04:28 Test 04/03/24 04:28 Range/Units Serum Glucose 145 H 74-106 mg/dL Problem List SOB CXR CONSISTENT WITH VIRAL PNEUMONITIS COPD WITH ACUTE EXACERBATION Assessment/Plan INHALER STEROIDS ABX PT CHEST X RAY ABG Plan discussed with: Patient NASIR AYALA MD Apr 04, 2024 10:34
[2024-04-04 11:20] LABS: Base Excess 2.8 mmol/L (-2.0-3.0)
--- NOTE | 2024-04-04 11:59 | DVH ---
CHEST RADIOGRAPH Indication:PNA Technique: Single frontal view of the chest was obtained Comparison: XY CHEST PORTABLE on DOS: 04/02/24, XY CHEST PORTABLE on DOS: 04/02/24 FINDINGS: Lines and Tubes: None Lungs: Lungs are hyperinflated suggestive of COPD. Diffuse increased interstitial prominence. Pleura: No effusion. No pneumothorax. Cardiomediastinal contours: Unremarkable Bones: Unremarkable IMPRESSION: Pulmonary vascular congestion versus viral pneumonitis.
[2024-04-05] VITALS (17 sets, daily range): BP systolic 103–139; BP diastolic 40–66; PULSE 18–83; RESP 15–20; TEMP 80–98; O2SAT 94–100
[2024-04-05] MEDS ORDERED: FLUT1INH6 IN (10:09)
[2024-04-05] MEDS ORDERED: ASCO500T11 PO ×2 (10:13)
--- NOTE | 2024-04-05 12:58 | DVHPN2 ---
Progress Note - Dictate Date Seen: Apr 05, 2024 Medical Necessity Reason Pt with a Central, PICC or Fol: No Subjective PT WITH SOB CXR CONSISTENT WITH VIRAL PNEUMONITIS COPD WITH ACUTE EXACERBATION vital signs Vital Sign Date Time Temp Pulse Resp B/P (MAP) Pulse Ox O2 Delivery O2 Flow Rate FiO2 04/05/24 12:31 97.6 60 17 139/44 (75) 98 97.6 04/05/24 10:26 Nasal Cannula 3.0 04/05/24 10:26 32 Total Intake and Output 04/04/24 04/04/24 04/05/24 15:00 23:00 07:00 Intake Total 300 ml 1154 ml 230 ml Balance 300 ml 1154 ml 230 ml medications Current Medications Medications Dose Ordered Sig/Denzel Route Start Time Stop Time Status Last Admin Dose Admin Azithromycin 250 ml @ 125 mls/hr DAILY IV 04/03/24 10:00 04/05/24 09:52 125 MLS/HR Ceftriaxone Sodium 50 ml @ 100 mls/hr DAILY IV 04/03/24 10:00 04/05/24 09:52 100 MLS/HR Methylprednisolone Sodium Succinate 40 mg Q8HR IV 04/03/24 00:00 04/05/24 06:09 40 MG Diagnostic Test (Pha) 1 strip ACHS 04/02/24 22:00 04/05/24 11:56 1 STRIP Insulin Human Regular ACHS SC 04/02/24 22:00 04/05/24 12:22 2 UNITS Dextrose 50 ml UD PRN IV 04/02/24 19:45 Al Hydrox/Mg Hydrox/Simethicone 30 ml Q6HP PRN PO 04/02/24 19:45 Docusate Sodium 100 mg BIDPRN PRN PO 04/02/24 19:45 Acetaminophen 650 mg Q6HP PRN PO 04/02/24 19:45 04/03/24 22:27 650 MG Acetaminophen/ Hydrocodone Bitart 1 tab Q4HP PRN PO 04/02/24 19:45 Ondansetron HCl 4 mg Q4HP PRN IV 04/02/24 19:45 Cholestyramine Resin 2 gm DAILY GT 04/03/24 10:00 Clopidogrel Bisulfate 75 mg DAILY PO 04/03/24 10:00 04/05/24 09:54 75 MG Cholecalciferol 4,000 unit DAILY PO 04/03/24 10:00 04/05/24 09:53 4,000 UNIT Lisinopril 2.5 mg DAILY PO 04/03/24 10:00 04/05/24 09:54 2.5 MG Metoprolol Succinate 50 mg DAILY PO 04/03/24 10:00 04/05/24 09:54 50 MG Atorvastatin Calcium 20 mg HS PO 04/02/24 22:00 04/04/24 21:59 20 MG Albuterol 2.5 mg Q4HWA NEB 04/03/24 18:00 04/05/24 10:26 2.5 MG Ipratropium [place] 0.5 mg Q4HWA NEB 04/03/24 18:00 04/05/24 10:26 0.5 MG Patient Own Medication 20 BID PO 04/03/24 22:00 04/05/24 09:56 20 Patient Own Medication 1 TID PO 04/03/24 22:00 04/05/24 06:09 1 laboratory and microbiology Laboratory Tests 04/03/24 04:28 Test 04/03/24 04:28 Range/Units Serum Glucose 145 H 74-106 mg/dL Problem List SOB CXR CONSISTENT WITH VIRAL PNEUMONITIS COPD WITH ACUTE EXACERBATION Assessment/Plan INHALER STEROIDS ABX PT CHEST X RAY ABG CXR PERSISTENT INTERSTITIAL INFILTRATE CO2 RETENTION INCREASE PROTEIN INTAKE Plan discussed with: Patient Critical Care Time(min): 35 NASIR AYALA MD Apr 05, 2024 12:58
[2024-04-05] MEDS ORDERED: PRED20TA2 PO (14:56)
[2024-04-05] MEDS ORDERED: DOXY100C4 PO (14:57)
--- NOTE | 2024-04-05 15:15 | MEDREC ---
[facility] Intervention Section I [facility] Intervention: Review courses of therapy (PLEASE CONSIDER D/C ANTIBIOTIC(S) IN ABSENCE OF BACTERIAL INFECTION - FOR COPD EXCAERBATION CONSIDER AZITHROMYCIN OR DOXYCYCLINE FOR 5 TO 7 DAYS ) BOZENA FITCH PHARMACIST Apr 05, 2024 15:15
[2024-04-05] MEDS: Glucerna Carbsteady SHAKE Stawberry 8oz PO SCH (18:00)
[2024-04-05] MEDS ORDERED: Ensure HIGH Protein Chocolate 8oz Bottle PO SCH (18:00)
[2024-04-05] MEDS: MEGESTROL ACETATE 20 MG TAB PO SCH (21:35)
[2024-04-06] VITALS (12 sets, daily range): BP systolic 139–149; BP diastolic 44–98; PULSE 62–92; RESP 18–22; TEMP 97.4–98; O2SAT 93–100
--- NOTE | 2024-04-17 16:24 | DVHDS2 ---
Discharge Summary Date of Admission Apr 02, 2024 at 19:41 Date of Discharge: Apr 05, 2024 Admitting Diagnosis VIRAL PNEUMONITIS Labs/Diagnostic Data: Laboratory Results Test 04/06/24 06:13 04/04/24 11:12 04/03/24 14:47 04/03/24 04:28 POC Glucose 115 mg/dl (70-106) Blood Gas Specimen Type Arterial Blood Gas Sample Site Right radial Blood Gas Patient Temperature 37.0 Arterial Blood Date Drawn Arterial Blood pH 7.416 (7.350-7.450) Arterial Blood Partial Pressure CO2 44.2 mmHg (32.0-45.0) Arterial Blood Partial Pressure O2 56.8 mmHg (83.0-108.0) Arterial Blood HCO3 27.8 mmol/L (21.0-28.0) Arterial Blood Oxygen Saturation 89.8 % (94.0-98.0) Arterial Blood Base Excess 2.8 mmol/L (-2.0-3.0) Arterial Blood Oxyhemoglobin 88.9 % (94.0-98.0) Arterial Blood Carboxyhemoglobin 0.8 % (0.5-1.5) Arterial Blood Methemoglobin 0.2 % (0.0-1.5) [place] Test Yes Blood Gas Total Hemoglobin 12.90 g/dL (12.0-16.0) Blood Gas Modality Room air FiO2 % 21.0 D-Dimer, Quantitative 2.91 mg/L FEU (0.0-0.49) White Blood Count 6.0 10^3/uL (4.4-10.8) Red Blood Count 4.32 10^6/uL (4.0-5.20) Hemoglobin 12.9 g/dL (12.2-16.2) Hematocrit 39.4 % (36.0-46.0) Mean Corpuscular Volume 91.3 fL (80.0-100.0) Mean Corpuscular Hemoglobin 29.9 pg (28.0-32.0) Mean Corpuscular Hemoglobin Concent 32.8 g/dL (32.0-36.0) Red Cell Distribution Width 14.9 % (11.8-14.3) Platelet Count 327 10^3/uL (140-450) Mean Platelet Volume 7.2 fL (6.9-10.8) Neutrophils (%) (Auto) 90.0 % (37.0-80.0) Lymphocytes (%) (Auto) 7.8 % (10.0-50.0) Monocytes (%) (Auto) 2.2 % (0.0-12.0) Eosinophils (%) (Auto) 0.0 % (0.0-7.0) Basophils (%) (Auto) 0.0 % (0.0-2.0) Neutrophils # (Auto) 5.4 10 ^3/uL (1.6-8.6) Lymphocytes # (Auto) 0.5 10 ^3/uL (0.4-5.4) Monocytes # (Auto) 0.1 10 ^3/uL (0-1.3) Eosinophils # (Auto) 0 10 ^3/uL (0-0.8) Basophils # (Auto) 0 10 ^3/uL (0-0.2) Nucleated Red Blood Cells 0.0 % Sodium Level 136 mmol/L (136-145) Potassium Level 5.0 mmol/L (3.5-5.1) Chloride Level 105 mmol/L (98-107) Carbon Dioxide Level 25 mmol/L (20-31) Anion Gap 6 (5-15) Blood Urea Nitrogen 19 mg/dL (9-23) Creatinine 0.80 mg/dL (0.550-1.02) Glomerular Filtration Rate Calc 76 mL/min (>90) BUN/Creatinine Ratio 23.8 (10.0-20.0) Serum Glucose 145 mg/dL (74-106) Calcium Level 10.1 mg/dL (8.7-10.4) Other Laboratory Tests 04/03/24 04:28 Brief Hx & Hospital Course: SOB CXR CONSISTENT WITH VIRAL PNEUMONITIS COPD WITH ACUTE EXACERBATION Assessment/Plan INHALER STEROIDS ABX PT CHEST X RAY ABG CXR PERSISTENT INTERSTITIAL INFILTRATE CO2 RETENTION INCREASE PROTEIN INTAKE Condition at Discharge: Guarded Final Diagnosis/Problems List VIRAL PNEUMONITIS COPD WITH ACUTE EXACERBATION Discharge Disposition: Home Discharge Instruct/Medications Diet: Consistent carbohydrate Activity: Light activity Follow Up/Referral: Follow up with PCP within 1-2 weeks. Medications: Prednisone 40mg Once daily Doxycycline 100mg BID for 7 days Discharge Statement: "Patient was advised to return to the ER or call 911 if any headaches, dizziness, shortness of breath, chest pain, abdominal pain, bleeding, fevers, or worsening of medical condition. Patient was counseled about treatment plan, medications, possible side effects, patientverbalized understanding. All questions were answered to the best of my ability. This discharge took greater then 30 minutes in planning, reviewing documentation, counseling the patient, and discussing with other team members." ASSESSMENT ASSESSMENT Assessment VIRAL PNEUMONITIS COPD WITH ACUTE EXACERBATION NASIR AYALA MD Apr 17, 2024 16:24
== END 2024-04-06 15:10 | disposition home or self-care (01) | DRG 193 ==
LOC: ER 11:50 → OVERFLOW 19:41 → WEST WING 21:26
PROVIDERS: ADMIT Hospitalist; ATTEND Internal Medicine Cardiovascular Disease
DX: J12.9 Viral pneumonia, unspecified (principal); J96.01 Acute respiratory failure with hypoxia; J44.1 Chronic obstructive pulmonary disease with (acute) exacerbation; J44.0 Chronic obstructive pulmonary disease with (acute) lower respiratory infection; E87.29 Other acidosis; I10 Essential (primary) hypertension; E78.00 Pure hypercholesterolemia, unspecified; G62.9 Polyneuropathy, unspecified
CPT/HCPCS: 36415; 36600; 71045; 80048; 82805; 82962; 85025; 85379; 93005; 94640; 97163; 99291; G0378; J1815

== ENCOUNTER → 2024-04-24 | Outpatient (CLI) | payer MEDICARE ==
[~2024-04-24] MED LIST changes: -ACET-6 PO; +ASCO500T11 PO; -BUDE1AER4 IN; +FLUT1INH6 INH; +GABA-1250 PO; +MAGNTAB16 PO; -METO25TA36 PO; -POLYSOL2 OP; +TADA5TAB11 PO
--- NOTE | 2024-04-24 16:13 | DVHSR ---
APPROVED REPORT EXAM: Two-dimensional and M-mode echocardiogram with Doppler and color Doppler. DIMENSIONS LVDd4.4 (3.8-5.7cm)LA (2D)4.8 (1.9-4.0cm)Aortic Root2.6 (2.0-3.7cm) LVDs2.8 (2.5-4.0cm)LA (MM) (1.9-4.0cm)Aortic Cusp Exc0.7 (1.5-2.0cm) EF (%) 67.7 (55-70%)Rt. Atrium4.2 (1.9-4.0cm)Asc. Aorta3.3 cm IVSd1.4 (0.7-1.1cm)RV (D) (1.8-2.4cm) PWd1.1 (0.7-1.1cm) Mitral Valve MitralMitral Stenosis E wave1.49m/sMV Mean GR.5mmHg A wave1.73m/sMV Peak GR.103mmHg E/A ratio0.92D MVAcm2 DECEL [id number] 1/2 [id number] IVRTmsDop MVA2.95cm2 Aortic Valve Aortic ValveAortic Stenosis V11.07m/Marcin Mean GR.27mmHg V23.44m/Marcin Peak GR.47mmHg LVOT Diameter1.9 (1.8-2.4cm)Doppler AVA0.88cm2 Pulmonic Valve V20.84m/s Tricuspid Valve [id number] LEFT VENTRICLE The Ejection Fraction is >55%. ATRIA The left atrium is mildly dilated. The right atrium is mildly dilated. MITRAL VALVE Mitral annular calcification is mild. Mitral regurgitation is mild. PULMONIC VALVE The pulmonic valve is not well visualized. TRICUSPID VALVE The tricuspid valve is grossly normal. There is trace tricuspid regurgitation. AORTIC VALVE The aortic valve is mildlycalcified. There is trace aortic regurgitation. There is moderate to severe valvular aortic stenosis. GREAT VESSELS The aortic root is normal size. PERICARDIAL EFFUSION There is no pericardial effusion. Other Information Technically limited study due to body habitus. Conclusion EF >60% LVH SEVERE LAE ARACELY
== END | disposition home or self-care (01) ==
LOC: Rad HDHVI 14:04
PROVIDERS: ATTEND Internal Medicine Cardiovascular Disease
DX: I08.0 Rheumatic disorders of both mitral and aortic valves (principal); I11.9 Hypertensive heart disease without heart failure
CPT/HCPCS: 93306

== ENCOUNTER → 2024-05-03 | Outpatient (CLI) | payer MEDICARE | END | disposition home or self-care (01) | LOC: Rad HDHVI 12:30 | PROVIDERS: ATTEND Internal Medicine Cardiovascular Disease | DX: I73.9 Peripheral vascular disease, unspecified (principal) | CPT/HCPCS: 93925 ==

== ENCOUNTER → 2024-05-22 | Outpatient (CLI) | payer MEDICARE ==
[~2024-05-22] VITALS: Ht 162.6 cm; Wt 45.8 kg
[~2024-05-22] MED LIST changes: +ADENOSINE 38 MG in GIVE UN-DILUTED 0 ML IV ONE; +ADENOSINE 90 MG/30 ML INJ IV ONE
== END | disposition home or self-care (01) ==
LOC: Rad HDHVI 13:06
PROVIDERS: ATTEND Internal Medicine Cardiovascular Disease
DX: I11.0 Hypertensive heart disease with heart failure (principal); I50.23 Acute on chronic systolic (congestive) heart failure; E78.00 Pure hypercholesterolemia, unspecified; I35.0 Nonrheumatic aortic (valve) stenosis; I25.10 Atherosclerotic heart disease of native coronary artery without angina pectoris; I25.5 Ischemic cardiomyopathy; I25.2 Old myocardial infarction; R06.02 Shortness of breath; F17.210 Nicotine dependence, cigarettes, uncomplicated; Z82.49 Family history of ischemic heart disease and other diseases of the circulatory system
CPT/HCPCS: 78452; 93005; 96374; 96375; A9500; J0153

== ENCOUNTER → 2024-07-10 | Outpatient (CLI) | payer MEDICARE ==
[~2024-07-10] MED LIST changes: -ADENOSINE 38 MG in GIVE UN-DILUTED 0 ML IV ONE; -ADENOSINE 90 MG/30 ML INJ IV ONE
[2024-07-10 09:05] VITALS: BP 166/69; PULSE 64; RESP 18; O2SAT 95
[2024-07-10 09:25] VITALS: BP 156/66; PULSE 60; RESP 18; O2SAT 95
--- NOTE | 2024-07-10 09:55 | DVH ---
EXAM: XY CHEST TWO VIEWS ROUTINE CLINICAL HISTORY: Pain COMPARISON: CXR2 on DOS: 07/13/22, CHEST TWO VIEWS ROUTINE on DOS: 07/13/22 TECHNIQUE: Frontal and lateral view of the chest was obtained FINDINGS: Lines and Tubes: None Lungs: No focal consolidation. Hyperinflation of the lungs suggestive of chronic obstructive pulmonar y disease. Linear scarring in the left mid lung. Pleura: No effusion. No pneumothorax. Cardiomediastinal contours: Unremarkable Bones: No acute osseous abnormality. IMPRESSION: No acute cardiopulmonary disease. Hyperinflation of the lungs suggestive of chronic obstructive pulmo nary disease.
== END | disposition home or self-care (01) ==
LOC: Rad HDHVI 09:01
PROVIDERS: ATTEND Internal Medicine Cardiovascular Disease
DX: Z01.818 Encounter for other preprocedural examination (principal); J98.4 Other disorders of lung; I73.9 Peripheral vascular disease, unspecified
CPT/HCPCS: 71046; 93005; G0463

== ENCOUNTER 2024-07-13 08:08 | Day surgery (SDC) | payer MEDICARE ==
[2024-07-10 11:53] LABS: INR 0.99 (0.9-1.15); Partial Thromboplastin Time 25.8 SEC (24.5-34.5); Prothrombin Time 10.5 sec (9.3-11.8)
[2024-07-10 12:15] LABS: Basophils # (auto) 0.1 10 ^3/uL (0-0.2); Basophils % (auto) 1.5 % (0.0-2.0); Eosinophils # (auto) 0.5 10 ^3/uL (0-0.8); Eosinophils % (auto) 7.7 % (0.0-7.0); Hematocrit 38.5 % (36.0-46.0); Hemoglobin 12.1 g/dL (12.2-16.2); Lymphocytes # (auto) 0.9 10 ^3/uL (0.4-5.4); Lymphocytes % (auto) 14.4 % (10.0-50.0); Mean Corpuscular Hemoglobin 25.8 pg (28.0-32.0); Mean Corpuscular Hgb Conc. 31.6 g/dL (32.0-36.0); Mean Corpuscular Volume 81.7 fL (80.0-100.0); Monocytes # (auto) 0.6 10 ^3/uL (0-1.3); Monocytes % (auto) 9.5 % (0.0-12.0); Neutrophils # (auto) 4.1 10 ^3/uL (1.6-8.6); Neutrophils % (auto) 66.9 % (37.0-80.0); Nucleated Red Blood Cells % 0.2 %; Platelet Count (auto) 387 10^3/uL (140-450); Red Blood Cells 4.71 10^6/uL (4.0-5.20); Red Cell Distribution Width 18.1 % (11.8-14.3); White Blood Cell 6.1 10^3/uL (4.4-10.8)
[2024-07-10 12:45] LABS: Chloride 105 mmol/L (98-107); Potassium 4.3 mmol/L (3.5-5.1); Sodium 140 mmol/L (136-145)
[2024-07-10 12:46] LABS: Anion Gap 6 (5-15); Carbon Dioxide 29 mmol/L (20-31)
[2024-07-10 12:48] LABS: Calcium 10.7 mg/dL (8.7-10.4)
[2024-07-10 12:51] LABS: BUN/Creatinine Ratio 31.4 (10.0-20.0); Glucose 91 mg/dL (74-106)
[2024-07-10 12:54] LABS: Blood Urea Nitrogen 27 mg/dL (9-23)
[2024-07-13] VITALS (17 sets, daily range): BP systolic 88–143; BP diastolic 40–64; PULSE 65–77; RESP 13–20; O2SAT 91–95
[~2024-07-13] VITALS: Ht 162.6 cm; Wt 48.1 kg
[~2024-07-13 08:08] MED LIST changes: -BUDE3CAP18 PO; -CHL4PW GT; +IODIXANOL 320MG/ML 100ML BTL IV ONE; -TADA5TAB11 PO
[2024-07-13] MEDS ORDERED: fentaNYL CITRATE 100 MCG/2 ML VL ONE (10:04)
[2024-07-13] MEDS ORDERED: ANGIOMAX 250 MG VIAL IV ONE (10:04)
[2024-07-13] MEDS ORDERED: MIDAZOLAM HCL 2MG/2ML 2ml VIAL (1mg/ml) ONE (10:05)
[2024-07-13] MEDS ORDERED: SODIUM CHL 0.9% 0 ML ONE (10:05)
[2024-07-13] MEDS ORDERED: LIDOCAINE 2%HCL (LOCAL ANESTH.) INJ 20ML MDV ONE (10:05)
[2024-07-13] MEDS ORDERED: IODIXANOL 320MG/ML 100ML BTL IV ONE (10:32)
[2024-07-13] MEDS: SODIUM CHLORIDE 0.9% 250 ML IV ONE (14:50)
--- NOTE | 2024-07-27 11:08 | DVHHP ---
ADMIT DATE: 07/13/2024 HISTORY OF PRESENT ILLNESS: The patient is 79-year-old with history of coronary artery disease, history of abdominal aortic aneurysm status post stent graft placement at an outside facility. The patient now having claudication symptoms, especially in the right lower extremity. The patient is now to undergo peripheral angiography to define peripheral anatomy to see whether the patient is a candidate for percutaneous revascularization, but the patient's stent graft appears to be [place] stent graft and therefore it will be difficult to undergo routine angioplasty by the antegrade method or from contralateral approach. Therefore, it may have to come from the popliteal if indeed there is a popliteal SFA stenosis, but if the patient has significant narrowing in the tibioperoneal trunk, then the approach would be from the arm itself. The risks and benefits were explained to the patient. Initially angiography will be performed diagnostic, then interventional strategy will be devised. PERTINENT MEDICAL HISTORY: Significant for: * Coronary artery disease. * History of COPD. * History of hypertension. * Hyperlipidemia. PHYSICAL EXAMINATION: VITAL SIGNS: Blood pressure is 122/80, pulse of 70, O2 saturation 98% on room air ASSESSMENT AND PLAN: The patient denies any fever or chills, melena, hematochezia, hematemesis, hemoptysis. Because of the claudication symptoms, I started her on Verquvo, which is a peripheral vasodilator as well, even though it is indicated with congestive heart failure symptoms and with that symptoms have somewhat improved, but she will require revascularization. Ultrasound of the lower extremities shows because of the claudication symptoms, classic presentation. Ultrasound was deferred. We proceeded directly to the angiogram. If the patient needs intervention at a later stage and we could not do it with the contralateral approach, then more than likely she will require imaging, especially CTA to better define the anatomy. More than likely, if there is proximal occlusion, she may even require a fem-fem crossover or aorto-fem axillary fem bypass surgery. At this time, we will make further recommendations after the angiography. Davian Vázquez MD SA/AUBREY TID: [id number] RECEIPT: [id number]
--- NOTE | 2024-07-27 11:22 | DVHOP ---
DATE OF SURGERY: 07/13/2024 PROCEDURE TO BE PERFORMED: Selective left and right lower extremity angiography. INDICATIONS: The patient who has stent graft, appears to be a [place] stent graft. Now, requires peripheral angiography with possibility of angioplasty. PROCEDURES PERFORMED: * Peripheral angiography. * Conscious sedation. DESCRIPTION OF PROCEDURE: The patient was prepped and draped in a sterile condition. 1% Xylocaine used to anesthetize the left groin. Using Cook needle, left femoral artery was engaged via Seldinger technique, a 6-Mexican sheath in the left femoral artery. Using 6-Mexican sheath, angiography of the left lower extremity was performed. Then, using the contralateral approach, we were not able to get into the contralateral limb of the stent graft from the aortic aneurysm. Therefore, a nonselective injection was performed. It showed the patient to have complete occlusion of the right limb of the [place] stent graft. Therefore, no flow was determined in the right lower extremity. It appears as though the entire right iliac was occluded, but since the patient does not have any ulceration, I believe the patient has collateral circulation. So, she will require better imaging with CT, CTA and then more than likely she will require a fem-fem crossover surgery. If the common femoral is patent and the SFA is patent or she may require axillary fem surgery of the right lower extremity because of excessive claudication. RESULTS: Angiography of the left lower extremity shows the patient to have patent left iliac, patent left common femoral, patent left superficial femoral artery, patent left popliteal with 2-vessel distal runoff. At this time, the patient will require revascularization of the right lower extremity, most likely from a fem-fem crossover surgery. Davian Vázquez MD SA/ORD/THOMAS TID: [id number] RECEIPT: [id number]
--- NOTE | 2024-07-27 12:10 | DVHDS ---
DATE OF DISCHARGE: 07/13/2024 DISCHARGE DIAGNOSES: * The patient with occluded right limb of the abdominal stent graft. * Occluded right iliac as well. HOSPITAL COURSE: At this time, the patient will require possible fem-fem crossover surgery because of the occlusion of the stent graft. Chronically occluded and therefore at this time to revascularize very difficult. The best option for the patient at this time would be a fem-fem crossover surgery. I will obtain a CTA of the abdomen to get a distal runoff. The patient is in the process of moving to [place] for the summer, and I have indicated that I will give all the information she needs and she needs to take the information to physicians over there and should be seen by vascular surgeons for possible surgical intervention to relieve the claudication the patient is experiencing. I do not believe she is a candidate for percutaneous intervention to revascularize the leg. We will continue to follow. The patient stable at the time of discharge. DISPOSITION: Home. ACTIVITY: As instructed. DIET: Will be 2 gram sodium diet. Davian Vázquez MD SA/FERNANDO/THOMAS TID: [id number] RECEIPT: [id number]
== END 2024-07-13 16:09 | disposition home or self-care (01) ==
LOC: CATH 08:08
PROVIDERS: ATTEND Internal Medicine Cardiovascular Disease
DX: I70.213 Atherosclerosis of native arteries of extremities with intermittent claudication, bilateral legs (principal); E78.5 Hyperlipidemia, unspecified; I25.10 Atherosclerotic heart disease of native coronary artery without angina pectoris; J44.9 Chronic obstructive pulmonary disease, unspecified; Z86.79 Personal history of other diseases of the circulatory system; Z95.5 Presence of coronary angioplasty implant and graft; I71.9 Aortic aneurysm of unspecified site, without rupture; I11.0 Hypertensive heart disease with heart failure; I50.9 Heart failure, unspecified
CPT/HCPCS: 36140; C1769; C1894; J1644; J2250; J3010; Q9967; 36415; 75710; 80048; 85025; 85610; 85730; 99152

== ENCOUNTER → 2024-08-07 | Outpatient (CLI) | payer MEDICARE ==
[~2024-08-07] MED LIST changes: -IODIXANOL 320MG/ML 100ML BTL IV ONE; +IOHEXOL 350 MG/ML 100ML IJ ONE
[2024-08-07 09:38] VITALS: BP 180/57; PULSE 56; RESP 16; O2SAT 96
[2024-08-07 10:11] VITALS: BP 166/44; PULSE 62; RESP 16; O2SAT 96
--- NOTE | 2024-08-07 19:16 | DVH ---
Examination: CT CT ANGIO ABD AORTA W RUN OFF CLINICAL HISTORY: ABD PAIN/ CLAUDICATION Comparison: None Technique: Using helical technique, CT data from the lung bases through the toes was obtained during rapid IV contrast infusion of 100 cc Omni 350. The examination was timed to the arterial system to ge nerate a CT angiographic study. 3D images were generated at an independent work station. Dose reducti on techniques included automated exposure control. Radiation Dose Information: CT Dose: CTDI volume is 7.96 mGy. Dose-length product is 1035.09 mGy*cm Findings: Abdominal aorta: Status post endograft repair of an infrarenal abdominal aortic aneurysm. Graft is pa tent with eccentric plaque. Right graft limb is occluded. Left graft limb is patent and terminates i n the left common iliac artery. No evidence of an endoleak. Aneurysm sac is thrombosed measuring up to 38 mm. Celiac artery: Patent SMA: Calcified plaque at the origin of the superior mesenteric artery likely results in a moderate to high-grade stenosis. Renal arteries: Eccentric plaque in the proximal right renal artery results in a [id number] ghazal nosis. Left renal artery is patent. 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 External iliac artery: Patent Internal iliac artery: Occluded Common femoral artery: Patent Profunda femoral artery: Patent Superficial femoral artery: Patent Popliteal artery: Patent Anterior tibial artery: Patent Peroneal tibial trunk: Patent Peroneal artery: Patent Posterior tibial artery: Occluded Dorsalis pedis artery: Patent Lung bases: Atelectasis and scarring. Abdomen/Pelvis: Liver: The liver is normal in size and morphology,. No focal hepatic lesion. Biliary System: Gallbladder: Normal Bile Ducts: No intrahepatic or extrahepatic biliary ductal dilation. Spleen: No splenomegaly or focal splenic lesion. Pancreas: No masses or ductal dilation. Adrenals: Normal. Urinary System: Kidneys and Ureters: Right renal cyst. No hydronephrosis. Bladder: Normal. GI System: Stomach, small bowel, and large bowel are normal in caliber without wall thickening or dil ation Appendix is normal. Lymph nodes: No lymphadenopathy. Peritoneal cavity and surface: No free fluid. No pneumoperitoneum. Soft Tissues: Normal. Reproductive Organs: Normal. Bones: No acute fracture or aggressive osseous lesion. Impression: Vascular: 1. Status post endograft repair of an infrarenal abdominal aortic aneurysm. Graft is patent with ecc entric plaque. Right graft limb is occluded. Left graft limb is patent. No evidence of an endoleak.. Right Lower Extremity: 1. Occluded 2. Patent outflow 3. 2-vessel runoff to the right foot via the posterior tibial and peroneal arteries. Left Lower Extremity: 1. 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 2. Patent outflow 3. 2-vessel runoff to the left foot via the anterior tibial and peroneal arteries. Abdomen/Pelvis: 1. No acute abdominal pelvic process. Right renal cyst. HS:Y
== END | disposition home or self-care (01) ==
LOC: Rad HDHVI 09:20
PROVIDERS: ATTEND Internal Medicine Cardiovascular Disease
DX: I71.43 Infrarenal abdominal aortic aneurysm, without rupture (principal); N28.1 Cyst of kidney, acquired; I70.1 Atherosclerosis of renal artery; I72.3 Aneurysm of iliac artery; K55.1 Chronic vascular disorders of intestine; I74.5 Embolism and thrombosis of iliac artery; I70.8 Atherosclerosis of other arteries; J98.11 Atelectasis; R10.9 Unspecified abdominal pain; Z98.890 Other specified postprocedural states
CPT/HCPCS: 75635; G0463; Q9967

== ENCOUNTER → 2024-09-11 | Outpatient (CLI) | payer MEDICARE ==
[~2024-09-11] MED LIST changes: -IOHEXOL 350 MG/ML 100ML IJ ONE
--- NOTE | 2024-09-12 11:22 | DVHSR ---
APPROVED REPORT EXAM: Two-dimensional and M-mode echocardiogram with Doppler and color Doppler. DIMENSIONS LVDd3.9 (3.8-5.7cm)LA (2D)4.8 (1.9-4.0cm)Aortic Root2.5 (2.0-3.7cm) LVDs2.6 (2.5-4.0cm)LA (MM) (1.9-4.0cm)Aortic Cusp Exc0.9 (1.5-2.0cm) EF (%) 63.8 (55-70%)Rt. Atrium4.0 (1.9-4.0cm)Asc. Aorta3.0 cm IVSd1.6 (0.7-1.1cm)RV (D)3.8 (1.8-2.4cm) PWd1.4 (0.7-1.1cm) Mitral Valve MitralMitral Stenosis E wave1.66m/sMV Mean GR.7mmHg A wave1.92m/sMV Peak GR.171mmHg E/A ratio0.92D MVAcm2 DECEL [id number] 1/2 [id number] IVRTmsDop MVA2.68cm2 Aortic Valve Aortic ValveAortic Stenosis V11.07m/Marcin Mean GR.33mmHg V23.91m/Marcin Peak GR.61mmHg LVOT Diameter2.0 (1.8-2.4cm)Doppler AVA0.86cm2 Pulmonic Valve V20.80m/s Tricuspid Valve TR Velocity2.24m/s [id number] LEFT VENTRICLE The Ejection Fraction is >55%. ATRIA The left atrium is mildly dilated. The right atrium is borderline dilated. MITRAL VALVE Mitral annular calcification is mild. Mitral regurgitation is mild. PULMONIC VALVE The pulmonic valve is not well visualized. TRICUSPID VALVE The tricuspid valve is grossly normal. There is trace tricuspid regurgitation. AORTIC VALVE The aortic valve is moderatelycalcified. There is trace to mild aortic regurgitation. There is moderate to severe valvular aortic stenosis. GREAT VESSELS The aortic root is normal size. PERICARDIAL EFFUSION There is no pericardial effusion. Conclusion MOD AV CALCIFICATION SEVERE MILD MAC MILD AI MILD MR MILD TR CONC LVH EF >60%
== END | disposition home or self-care (01) ==
LOC: Rad HDHVI 13:59
PROVIDERS: ATTEND Internal Medicine Cardiovascular Disease
DX: I08.0 Rheumatic disorders of both mitral and aortic valves (principal); I11.9 Hypertensive heart disease without heart failure
CPT/HCPCS: 93306

== ENCOUNTER 2025-05-03 10:51 | Outpatient (CLI) | payer MEDICARE | END 2025-05-03 17:00 | disposition home or self-care (01) | LOC: Rad HDHVI 10:51 | PROVIDERS: ATTEND Internal Medicine Cardiovascular Disease | DX: I08.1 Rheumatic disorders of both mitral and tricuspid valves (principal); R00.2 Palpitations; I73.9 Peripheral vascular disease, unspecified | CPT/HCPCS: 93306 ==

== ENCOUNTER → 2025-05-23 | Outpatient (CLI) | payer MEDICARE | END | disposition home or self-care (01) | LOC: Rad HDHVI 10:52 | PROVIDERS: ATTEND Internal Medicine Cardiovascular Disease | DX: I10 Essential (primary) hypertension (principal); I35.0 Nonrheumatic aortic (valve) stenosis | CPT/HCPCS: 93880 ==